=== PATIENT | female | born 1990 | race African-American/Black ===

== ENCOUNTER 2016-04-27 11:21 | Emergency (ER) | payer MEDICAID ==
[2016-04-27 11:34] VITALS: BP 106/68
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
== END 2016-04-27 12:27 | disposition home or self-care (01) ==
LOC: ER 11:21
DX: S20.211A Contusion of right front wall of thorax, initial encounter (principal); Y04.8XXA Assault by other bodily force, initial encounter; R07.81 Pleurodynia; R07.89 Other chest pain; Z88.5 Allergy status to narcotic agent; F17.200 Nicotine dependence, unspecified, uncomplicated
CPT/HCPCS: 99283

== ENCOUNTER 2016-05-01 11:17 | Emergency (ER) | payer MEDICAID ==
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
[2016-05-01 13:51] VITALS: BP 120/60
== END 2016-05-01 13:52 | disposition home or self-care (01) ==
LOC: ER 11:17
DX: S20.20XA Contusion of thorax, unspecified, initial encounter (principal); R07.81 Pleurodynia; Y00.XXXA Assault by blunt object, initial encounter; F17.200 Nicotine dependence, unspecified, uncomplicated
CPT/HCPCS: 99283

== ENCOUNTER 2016-05-28 12:04 | Emergency (ER) | payer MEDICAID ==
[2016-05-28 12:16] VITALS: BP 113/68
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
[2016-05-28] MEDS ORDERED: ACETAMINOPHEN 325 MG TABLET PO ONE (13:08)
--- NOTE | 2016-05-28 14:31 | ER Document Report ---
[id number] FALL BACK PAIN Mode of Arrival: Ambulatory Notes: The patient is a 26 her old female who presents with left shoulder pain and left -sided rib pain after an entertainment center fell on her. She said the pain is worse when she moves her shoulders and she has not taken anything to help. She denies numbness, tingling, neck pain, shortness of breath, open wounds, head injury or LOC. TRAVEL OUTSIDE OF THE [place] IN LAST 30 DAYS: No - Related Data Allergies/Adverse Reactions: codeine [Codeine] Allergy (Verified 05/28/16 13:04) Hives tramadol [Tramadol] Allergy (Verified 05/28/16 13:04) Hives Past Medical History - General Information source: Patient - Social History Smoking Status: Current Some Day Smoker Family History: Reviewed & Not Pertinent Patient has suicidal ideation: No Patient has homicidal ideation: No Renal/ Medical History: Denies: Hx Peritoneal Dialysis Past Surgical History: Reports: Hx Tonsillectomy - Immunizations Immunizations up to date: Yes Hx Diphtheria, Pertussis, Tetanus Vaccination: Yes Review of Systems - Review of Systems Notes: REVIEW OF SYSTEMS: CONSTITUTIONAL: -fevers, -chills EENT: -eye pain, -difficulty swallowing, -nasal congestion CARDIOVASCULAR:-chest pain, -syncope. RESPIRATORY: -cough, -SOB GASTROINTESTINAL: -abdominal pain, - nausea, -vomiting, -diarrhea GENITOURINARY: -dysuria, -hematuria MUSCULOSKELETAL: +left shoulder pain, +left rib pain, -back pain, -neck pain SKIN: -rash or skin lesions. HEMATOLOGIC: -easy bruising or bleeding. LYMPHATIC: -swollen, enlarged glands. NEUROLOGICAL: -altered mental status or loss of consciousness, -headache, - neurologic symptoms PSYCHIATRIC: -anxiety, -depression. ALL OTHER SYSTEMS REVIEWED AND NEGATIVE. Physical Exam - Vital signs Vitals: Temp Pulse Resp BP Pulse Ox 98.1 F 98 16 113/68 99 05/28/16 12:15 05/28/16 12:15 05/28/16 12:15 05/28/16 12:15 05/28/16 12:15 - Notes Notes: PHYSICAL EXAMINATION: GENERAL: Well-appearing, well-nourished and in no acute distress. HEAD: Atraumatic, normocephalic. EYES: Pupils equal round and reactive to light, extraocular movements intact, sclera anicteric, conjunctiva are normal. ENT: nares patent, oropharynx clear without exudates. Moist mucous membranes. NECK: Normal range of motion, supple without lymphadenopathy LUNGS: Breath sounds clear to auscultation bilaterally and equal. No wheezes rales or rhonchi. HEART: Regular rate and rhythm without murmurs ABDOMEN: Soft, nontender, normoactive bowel sounds. No guarding, no rebound. No masses appreciated. EXTREMITIES: Tenderness over left anterior shoulder and left lateral ribs. Normal range of motion, no pitting or edema. No cyanosis. NEUROLOGICAL: Cranial nerves grossly intact. Normal speech, normal gait. Normal sensory, motor, and reflex exams. PSYCH: Normal mood, normal affect. SKIN: Warm, Dry, normal turgor, no rashes or lesions noted. Course - Re-evaluation Re-evalutation: Rib x-ray and shoulder x-rays do not show any evidence of fractures. Will treat contusions with anti-inflammatories and have her follow-up with her primary care physician. She agrees with plan. - Vital Signs Vital signs: Temp Pulse Resp BP Pulse Ox 98.1 F 98 16 113/68 99 05/28/16 12:15 05/28/16 12:15 05/28/16 12:15 05/28/16 12:15 05/28/16 12:15 Discharge - Discharge Clinical Impression: Shoulder contusion Qualifiers: Encounter type: initial encounter Laterality: left Qualified Code(s): S40.012A - Contusion of left shoulder, initial encounter Contusion of rib on left side Qualifiers: Encounter type: initial encounter Qualified Code(s): S20.212A - Contusion of left front wall of thorax, initial encounter Condition: Good Disposition: HOME, SELF-CARE Additional Instructions: Take over the counter Naprosyn twice a day to help with any bruising and apply ice packs. Contusion Your injury has resulted in a contusion -- a crushing of the deep tissues. No injury to important structures was detected during the physician's exam. Contusions vary in the amount of pain they cause, and in the length of time required for healing. Typically, the area will become bruised, and will remain painful to touch for two or three weeks. However, most patients are back to working and playing within a few days. After the initial period of rest and cold-packs, your symptoms (together with the doctor's recommendations) will determine how rapidly you can get back to full activity. Usually this means "do what feels okay, but don't do things that hurt." If re-examination was recommended, it's important to follow up as instructed. Call the doctor or return any time if pain increases, if swelling becomes severe, if you develop numbness or weakness in an injured extremity, or if any other alarming symptoms occur. Referrals: JESUS SOMMERS MD [Primary Care Provider] - Follow up as needed
[2016-05-28] MEDS ORDERED: NAPROXEN 250 MG TABLET PO ONE (15:06)
== END 2016-05-28 15:00 | disposition home or self-care (01) ==
LOC: ER 12:04
DX: S40.012A Contusion of left shoulder, initial encounter (principal); S20.212A Contusion of left front wall of thorax, initial encounter; W20.8XXA Other cause of strike by thrown, projected or falling object, initial encounter; Y93.89 Activity, other specified; F17.200 Nicotine dependence, unspecified, uncomplicated; Z88.5 Allergy status to narcotic agent
CPT/HCPCS: 99283; 71101; 73030; J3490

== ENCOUNTER 2016-07-04 12:25 | Emergency (ER) | payer MEDICAID ==
[2016-07-04 12:35] VITALS: BP 111/67
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
[2016-07-04] MEDS ORDERED: IBUPROFEN 800 MG TABLET PO ONE (15:21)
== END 2016-07-04 15:35 | disposition home or self-care (01) ==
LOC: ER 12:25
DX: M54.5 Low back pain (principal); M25.551 Pain in right hip; Y04.0XXA Assault by unarmed brawl or fight, initial encounter; F17.200 Nicotine dependence, unspecified, uncomplicated; Z79.3 Long term (current) use of hormonal contraceptives
CPT/HCPCS: 72110; 99283

== ENCOUNTER 2016-07-17 13:57 | Emergency (ER) | payer SELFPAY ==
[2016-07-17 14:22] VITALS: BP 131/79
--- NOTE | 2016-07-17 14:59 | ER Document Report ---
HPI - HPI Patient complains to provider of: DENTAL PAIN Onset: Other Onset/Duration: Gradual Quality of pain: Throbbing Severity: Severe Pain Level: 5 Context: Patient states she has been having right upper dental pain for a couple of days , but been on a piece of beef jerky this morning and has been in constant pain since then. Complains of swelling to right side of her face. Patient states she has an appointment with her dentist on August 03 at 11:30 AM. Associated Symptoms: None Exacerbated by: Food Relieved by: Denies Similar symptoms previously: Yes Recently seen / treated by doctor: No - ROS ROS below otherwise negative: Yes Systems Reviewed and Negative: Yes All other systems reviewed and negative - CONSTITUTIONAL Constitutional: DENIES: Fever - EENT EENT: DENIES: Congestion - NEURO Neurology: DENIES: Headache - CARDIOVASCULAR Cardiovascular: DENIES: Chest pain - RESPIRATORY Respiratory: DENIES: Trouble Breathing - GASTROINTESTINAL Gastrointestinal: DENIES: Abdominal Pain - URINARY Urinary: DENIES: Dysuria - REPRODUCTIVE Reproductive: DENIES: : - MUSCULOSKELETAL Musculoskeletal: DENIES: Extremity pain - DERM Skin Color: Normal Skin Problems: None Past Medical History - General Information source: Patient - Social History Smoking Status: Current Every Day Smoker Cigarette use (# per day): Yes Frequency of alcohol use: None Drug Abuse: None Lives with: Family Family History: Reviewed & Not Pertinent Patient has suicidal ideation: No Patient has homicidal ideation: No - Medical History Medical History: Negative Renal/ Medical History: Denies: Hx Peritoneal Dialysis Past Surgical History: Reports: Hx Tonsillectomy - Immunizations Immunizations up to date: Yes Hx Diphtheria, Pertussis, Tetanus Vaccination: Yes Vertical Provider Document - CONSTITUTIONAL Agree With Documented VS: Yes Exam Limitations: No Limitations General Appearance: WD/WN, No Apparent Distress - INFECTION CONTROL TRAVEL OUTSIDE OF THE [place] IN LAST 30 DAYS: No - HEENT HEENT: Atraumatic, Normocephalic Mouth Diagram: 1 - CAVITY, MILD EDEMA AROUND TOOTH - NECK Neck: Normal Inspection, Supple - RESPIRATORY Respiratory: Breath Sounds Normal, No Respiratory Distress O2 Sat by Pulse Oximetry: 98 - CARDIOVASCULAR Cardiovascular: Regular Rate, Regular Rhythm - GI/ABDOMEN Gastrointestinal: Abdomen Soft - MUSCULOSKELETAL/EXTREMETIES Musculoskeletal/Extremeties: MAEW, FROM - NEURO Level of Consciousness: Awake, Alert, Appropriate - DERM Integumentary: Warm, Dry, No Rash Course - Vital Signs Vital signs: Temp Pulse Resp BP Pulse Ox 98.3 F 65 16 131/79 H 98 07/17/16 14:20 07/17/16 14:20 07/17/16 14:20 07/17/16 14:20 07/17/16 14:20 Discharge - Discharge Clinical Impression: Toothache Condition: Good Disposition: HOME, SELF-CARE Instructions: Toothache ([facility]), Clindamycin ([facility]) Additional Instructions: MEDS PRESCRIBED MOTRIN NEEDED FOLLOW UP WITH DENTIST SCHEDULED, CALL TO SEE IF YOU CAN GET EARLIER APPT RETURN NEEDED Prescriptions: Clindamycin HCl 150 mg PO QID #28 capsule Hydrocodone/Acetaminophen [[place] 5-325 mg Tablet] 1 tab PO PRN PRN #15 tablet PRN Reason:
== END 2016-07-17 15:00 | disposition home or self-care (01) ==
LOC: ER 13:57
DX: K08.89 Other specified disorders of teeth and supporting structures (principal); R22.0 Localized swelling, mass and lump, head; F17.210 Nicotine dependence, cigarettes, uncomplicated
CPT/HCPCS: 99282

== ENCOUNTER 2016-07-31 16:23 | Emergency (ER) | payer SELFPAY ==
--- NOTE | 2016-07-31 17:19 | ER Document Report ---
HPI - HPI Patient complains to provider of: TOOTHACHE Onset: Other - INTERMITTENT FOR 3 WEEKS Onset/Duration: Waxing and waning Quality of pain: Throbbing Severity: Severe Pain Level: 5 Context: Patient states that last visit she had an appointment August 03 at 11:30. Today she tells me she has an appointment August 09 at 11:00. Associated Symptoms: None Exacerbated by: Food Relieved by: Denies Similar symptoms previously: Yes Recently seen / treated by doctor: Yes - ROS ROS below otherwise negative: Yes Systems Reviewed and Negative: Yes All other systems reviewed and negative - CONSTITUTIONAL Constitutional: DENIES: Fever - EENT EENT: DENIES: Congestion Notes: RIGHT UPPER TOOTHACHE - NEURO Neurology: DENIES: Headache - CARDIOVASCULAR Cardiovascular: DENIES: Chest pain - RESPIRATORY Respiratory: DENIES: Trouble Breathing - GASTROINTESTINAL Gastrointestinal: DENIES: Abdominal Pain - URINARY Urinary: DENIES: Dysuria - REPRODUCTIVE Reproductive: DENIES: : - MUSCULOSKELETAL Musculoskeletal: DENIES: Extremity pain - DERM Skin Color: Normal Skin Problems: None Past Medical History - General Information source: Patient - Social History Smoking Status: Current Every Day Smoker Frequency of alcohol use: None Drug Abuse: None Lives with: Family Family History: Reviewed & Not Pertinent Patient has suicidal ideation: No Patient has homicidal ideation: No - Medical History Medical History: Negative Past Surgical History: Reports: Hx Tonsillectomy - Immunizations Immunizations up to date: Yes Hx Diphtheria, Pertussis, Tetanus Vaccination: Yes Vertical Provider Document - CONSTITUTIONAL Agree With Documented VS: Yes Exam Limitations: No Limitations General Appearance: WD/WN, Mild Distress - INFECTION CONTROL TRAVEL OUTSIDE OF THE [place] IN LAST 30 DAYS: No - HEENT HEENT: Atraumatic, Normocephalic Mouth Diagram: 1 - DECAY WITH MILD GUM SWELLING Notes: MILD EDEMA TO RIGHT CHEEK. - NECK Neck: Normal Inspection - RESPIRATORY Respiratory: Breath Sounds Normal, No Respiratory Distress O2 Sat by Pulse Oximetry: 99 - CARDIOVASCULAR Cardiovascular: Regular Rate, Regular Rhythm - MUSCULOSKELETAL/EXTREMETIES Musculoskeletal/Extremeties: CLIFFORD GARCIA - NEURO Level of Consciousness: Awake, Alert, Appropriate - DERM Integumentary: Warm, Dry, No Rash Course - Vital Signs Vital signs: Temp Pulse Resp BP Pulse Ox 99.2 F 78 12 123/75 99 07/31/16 17:00 07/31/16 17:00 07/31/16 17:00 07/31/16 17:00 07/31/16 17:00 Discharge - Discharge Clinical Impression: Toothache Condition: Good Disposition: HOME, SELF-CARE Instructions: Toothache ([facility]), Penicillin V K ([facility]) Additional Instructions: MEDS PRESCRIBED MOTRIN FOR PAIN CALL YOUR DENTIST FOR EARLIER APPT. RETURN NEEDED Prescriptions: Hydrocodone/Acetaminophen [[place] 5-325 mg Tablet] 1 tab PO PRN PRN #5 tablet PRN Reason: Ibuprofen 800 mg PO TID PRN #30 tablet PRN Reason: Penicillin V Potassium [Penicillin Vk 250 mg Tablet] 250 mg PO Q6 #40 tablet
[2016-07-31] MEDS ORDERED: HYDROCODONE/ACETAMINOPHEN 5-325 MG TABLET PO ONE (17:34)
[2016-07-31 18:07] VITALS: BP 131/60
== END 2016-07-31 18:08 | disposition home or self-care (01) ==
LOC: ER 16:23
DX: K02.9 Dental caries, unspecified (principal); K08.89 Other specified disorders of teeth and supporting structures; F17.200 Nicotine dependence, unspecified, uncomplicated
CPT/HCPCS: 99282

== ENCOUNTER 2016-08-20 15:36 | Emergency (ER) | payer SELFPAY ==
[2016-08-20] MEDS ORDERED: NORMAL SALINE 1000 ML 1,000 ML IV PRN (16:03)
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
[2016-08-20 16:11] LABS: ABSOLUTE BASOPHILS # (AUTO) 0.1 10^3/uL (0.0-0.2); ABSOLUTE EOSINOPHILS # (AUTO) 0.1 10^3/uL (0.0-0.6); ABSOLUTE LYMPHOCYTES (AUTO) 2.1 10^3/uL (0.5-4.7); ABSOLUTE MONOCYTES (AUTO) 0.5 10^3/uL (0.1-1.4); ABSOLUTE NEUT (AUTO) 3.3 10^3/uL (1.7-8.2); BASOPHILS % (AUTO) 1.5 % (0-2); HEMATOCRIT 46.9 % (36.0-47.0); HEMOGLOBIN 15.6 g/dL (12.0-15.5); HGB HCT DIFFERENCE -0.1; MEAN CORPUSCULAR HEMOGLOBIN 30.3 pg (27.0-33.4); MEAN CORPUSCULAR HGB CONC 33.2 g/dL (32.0-36.0); MEAN CORPUSCULAR VOLUME 91 fl (80-97); MONOCYTES % (AUTO) 7.7 % (3-13); RED BLOOD COUNT 5.14 10^6/uL (3.72-5.28); RED CELL DISTRIBUTION WIDTH 14.2 % (11.5-14.0); SEGMENTED NEUTROPHILS % (AUTO) 54.8 % (42-78); WHITE BLOOD COUNT 6.1 10^3/uL (4.0-10.5)
[2016-08-20 16:18] LABS: PROTHROMBIN TIME 13.2 SEC (11.4-15.4)
[2016-08-20 16:30] LABS: ALANINE AMINOTRANSFERASE 28 U/L (9-52); ALBUMIN 4.5 g/dL (3.5-5.0); ALKALINE PHOSPHATASE 58 U/L (38-126); ANION GAP 12 (5-19); ASPARTATE AMINO TRANSFERASE 20 U/L (14-36); BILIRUBIN,DIRECT 0.3 mg/dL (0.0-0.4); BILIRUBIN,TOTAL 0.8 mg/dL (0.2-1.3); BLOOD UREA NITROGEN 9 mg/dL (7-20); CARBON DIOXIDE 26 mmol/L (22-30); CHLORIDE 102 mmol/L (98-107); GLUCOSE 99 mg/dL (75-110); POTASSIUM 4.7 mmol/L (3.6-5.0); SODIUM 140.2 mmol/L (137-145); TOTAL PROTEIN 7.7 g/dL (6.3-8.2)
[2016-08-20] MEDS ORDERED: ALPRAZOLAM 0.5 MG TABLET PO ONE (16:39)
[2016-08-20] MEDS ORDERED: OXYCODONE-ACETAMINOPHEN 5-325 MG TABLET PO ONE (16:41)
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
[2016-08-20 18:49] VITALS: BP 114/83
== END 2016-08-20 18:49 | disposition home or self-care (01) ==
LOC: ER 15:36
DX: S06.0X9A Concussion with loss of consciousness of unspecified duration, initial encounter (principal); S16.1XXA Strain of muscle, fascia and tendon at neck level, initial encounter; S29.019A Strain of muscle and tendon of unspecified wall of thorax, initial encounter; M54.5 Low back pain; V86.59XA Driver of other special all-terrain or other off-road motor vehicle injured in nontraffic accident, initial encounter; Z88.5 Allergy status to narcotic agent; Z88.8 Allergy status to other drugs, medicaments and biological substances
CPT/HCPCS: 99284; 96360; 36415; 84702; 85025; 85610; 80053; 73090; 73060; 70450; 71260; 72125; 74177; J7030

== ENCOUNTER 2016-09-17 13:28 | Emergency (ER) | payer SELFPAY ==
[2016-09-17 13:33] VITALS: BP 114/69
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
[2016-09-17 15:10] LABS: APPEARANCE,URINE SLIGHTLY-CLOUDY; BILIRUBIN,URINE NEGATIVE (NEGATIVE); GLUCOSE, URINE NEGATIVE (NEGATIVE); KETONES,URINE NEGATIVE (NEGATIVE); LEUKOCYTE ESTERASE,URINE NEGATIVE (NEGATIVE); NITRITE,URINE NEGATIVE (NEGATIVE); PROTEIN,URINE NEGATIVE (NEGATIVE); URINE SPECIFIC GRAVITY 1.014; UROBILINOGEN,URINE NEGATIVE mg/dL (<2.0)
[2016-09-17] MEDS ORDERED: OXYCODONE-ACETAMINOPHEN 5-325 MG TABLET PO ONE (15:33)
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
== END 2016-09-17 16:19 | disposition left against medical advice (07) ==
LOC: EEVIPCON 13:28 → ER 13:28
DX: R51 Headache (principal); M54.5 Low back pain; Y04.2XXA Assault by strike against or bumped into by another person, initial encounter; F17.210 Nicotine dependence, cigarettes, uncomplicated; K08.89 Other specified disorders of teeth and supporting structures
CPT/HCPCS: 70150; 81001; 81025; 99284

== ENCOUNTER 2016-10-03 13:56 | Emergency (ER) | payer OTHER ==
[2016-10-03 14:03] VITALS: BP 117/69
[2016-10-03] MEDS ORDERED: OXYCODONE-ACETAMINOPHEN 5-325 MG TABLET PO ONE (15:00)
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
== END 2016-10-03 17:44 | disposition home or self-care (01) ==
LOC: EEVIPCON 13:56 → ER 13:56
DX: S20.211A Contusion of right front wall of thorax, initial encounter (principal); S80.11XA Contusion of right lower leg, initial encounter; R52 Pain, unspecified; V28.2XXA Unspecified motorcycle rider injured in noncollision transport accident in nontraffic accident, initial encounter
CPT/HCPCS: 70450; 71250; 72125; 74176; 99284

== ENCOUNTER 2016-10-09 14:28 | Emergency (ER) | payer OTHER ==
[2016-10-09 14:45] VITALS: BP 113/62
[2016-10-09] MEDS ORDERED: CLINDAMYCIN HCL 150 MG CAPSULE PO ONE (15:19)
[2016-10-09] MEDS ORDERED: HYDROCODONE/ACETAMINOPHEN 5-325 MG 6 TAB/DSPK PO PRN (15:19)
--- NOTE | 2016-10-09 15:20 | ER Document Report ---
HPI - HPI Patient complains to provider of: dental pain Onset: Other - chronic Onset/Duration: Intermittent Quality of pain: Sharp Pain Level: 4 Associated Symptoms: Other - dental pain Exacerbated by: Food Relieved by: Denies Similar symptoms previously: Yes Recently seen / treated by doctor: Yes - ROS ROS below otherwise negative: Yes - CONSTITUTIONAL Constitutional: DENIES: Fever, Chills - EENT EENT: DENIES: Sore Throat, Ear Pain, Nasal Drainage-Clear, Nasal Drainage- Purulent, Congestion, Eye problems Notes: Complains of dental pain and swelling to the right upper gums been chronic and she has been getting pain medications frequently. Went to the dentist and had a cleaning done but she has obvious gingivitis and cavities. - NEURO Neurology: DENIES: Headache, Weakness, Vision blurred, Dizzinesss / Vertigo - CARDIOVASCULAR Cardiovascular: DENIES: Chest pain - RESPIRATORY Respiratory: DENIES: Trouble Breathing, Coughing - GASTROINTESTINAL Gastrointestinal: DENIES: Abdominal Pain, Nausea, Patient vomiting, Diarrhea, Constipation, Black / Bloody Stools - URINARY Urinary: DENIES: Dysuria, Urgency, Frequency - REPRODUCTIVE Reproductive: DENIES: :, Postmenopausal, Abnormal bleeding / discharge - MUSCULOSKELETAL Musculoskeletal: DENIES: Extremity pain, Back Pain, Neck Pain, Swelling - DERM Skin Color: Normal Skin Problems: None Past Medical History - General Information source: Patient - Social History Smoking Status: Current Every Day Smoker Cigarette use (# per day): Yes - 5 cigarettes a day Chew tobacco use (# tins/day): No Smoking Education Provided: Yes - Less than 2 minutes Frequency of alcohol use: None Drug Abuse: None Occupation: None Lives with: Spouse/Significant other Family History: Reviewed & Not Pertinent Patient has suicidal ideation: No Patient has homicidal ideation: No - Past Medical History Cardiac Medical History: Reports: None Pulmonary Medical History: Reports: None EENT Medical History: Reports: None Neurological Medical History: Reports: None Endocrine Medical History: Reports: None Renal/ Medical History: Reports: None Malignancy Medical History: Reports: None GI Medical History: Reports: None Musculoskeltal Medical History: Reports None Skin Medical History: Reports None Psychiatric Medical History: Reports: None Traumatic Medical History: Reports: None Infectious Medical History: Reports: None Past Surgical History: Reports: Hx Tonsillectomy - Immunizations Immunizations up to date: Yes Hx Diphtheria, Pertussis, Tetanus Vaccination: Yes Vertical Provider Document - CONSTITUTIONAL Agree With Documented VS: Yes Exam Limitations: No Limitations General Appearance: WD/WN, No Apparent Distress - INFECTION CONTROL TRAVEL OUTSIDE OF THE [place] IN LAST 30 DAYS: No - HEENT HEENT: Atraumatic, Normal ENT Exam, Normocephalic, PERRLA Mouth Diagram: 1 - Obvious gingivitis and several small cavities no swelling to the jaw no swelling to the face. - NECK Neck: Normal Inspection, Supple - RESPIRATORY Respiratory: Breath Sounds Normal, No Respiratory Distress, Chest Non-Tender O2 Sat by Pulse Oximetry: 100 - CARDIOVASCULAR Cardiovascular: Regular Rate, Regular Rhythm - GI/ABDOMEN Gastrointestinal: Abdomen Soft, Abdomen Non-Tender, No Organomegaly, Normal Bowel Sounds - BACK Back: Normal Inspection - MUSCULOSKELETAL/EXTREMETIES Musculoskeletal/Extremeties: MAEW, FROM, Non-Tender - NEURO Level of Consciousness: Awake, Alert, Appropriate Motor/Sensory: No Motor Deficit, No Sensory Deficit - DERM Integumentary: Warm, Dry, No Rash Course - Vital Signs Vital signs: Temp Pulse Resp BP Pulse Ox 98.2 F 87 16 113/62 100 10/09/16 14:41 10/09/16 14:41 10/09/16 14:41 10/09/16 14:41 10/09/16 14:41 Discharge - Discharge Clinical Impression: Pain due to dental caries Condition: Stable Disposition: HOME, SELF-CARE Additional Instructions: TOOTHACHE: Your pain is due to dental decay. The tooth must be repaired in order for you to feel better. You will, therefore, be referred to a dentist. We do not have dentists on the staff at [facility]. Severe swelling or drainage around a tooth usually means a dental abscess. This also requires evaluation and treatment by the dentist, but antibiotics may be prescribed while awaiting dental treatment. You should be rechecked immediately if you develop major swelling of the face, increasing pain, a lump in the jaw or gums, headache, difficulty swallowing, or fever. ORAL NARCOTIC MEDICATION: You have been given a dispense pack of [place] for pain control. This medication is a narcotic. It's best taken with food, as nausea can result if taken on an empty stomach. Don't operate machinery or drive within six hours of taking this medication. Do not combine this medicine with alcohol, or with any medication which can cause sedation (such as cold tablets or sleeping pills) unless you get permission from the physician. Narcotics tend to cause constipation. If possible, drink plenty of fluids and eat a diet high in fiber and fruits. Please be aware that prescription narcotics also have the potential for abuse. People become addicted to these medications because of the general sense of wellbeing that they induce. This feeling along with a significant reduction in tension, anxiety, and aggression provides a stimulating seductive quality to these drugs. Once your pain is under control, we encourage you to discard your unused narcotics. CLINDAMYCIN: You have been given a prescription for the antibiotic clindamycin. It is often prescribed for infections in the mouth, such as dental infections or abscesses, and for skin infections due to MRSA. It's important that you take all the medication, unless instructed otherwise by your physician. Failure to complete the entire course can result in relapse of your condition. Common side effects of antibiotics include nausea, intestinal cramping, or diarrhea. Women may develop vaginal yeast infections, and babies can get yeast (thrush) in the mouth following the use of antibiotics. Contact your physician if you develop significant side effects from this medication. Allergy to this antibiotic can result in hives, wheezing, faintness, or itching. If symptoms of allergy occur, stop the medication and call the doctor. FOLLOW-UP CARE: You have been referred for follow-up care to the dentists listed below. Call the dentists office for an appointment as you were instructed or within the next two days. If you experience worsening or a significant change in your symptoms, notify the physician immediately or return to the Emergency Department at any time for re-evaluation. [facility] [address] [place], [place] Saturday mornings, by appointment [facility] [address] [place] [address] [facility] [address] [facility] [address] [facility] [address] [email or web address] [address] [place] [address] Saturday- 8:00am to 5:00 pm Will see patients from other [facility]. Charges based on income and family size and accepts Medicare, Medicaid, and Insurances Will pull molars [facility] [phone] Hours of Operation 8:00 am - 4:30 pm weekdays The following dental offices accept Medicaid: [facility] Dr. Anderson Dr. Dorantes Dr. Frias Dr. Ornelas Vic Stein Lutsavage, and [facility] oral surgery Dr. Rai ([place]) Dr. Sinclair ([place]) [facility] Drs. Velarde and Gaston ([place]) Dr. Valle ([place]) [facility] Dr. Gil ([place]) Drs. Tay and ([place]) Medicaid Care Line Prescriptions: Clindamycin HCl [Cleocin 300 mg Capsule] 600 mg PO Q6 #40 cap Forms: Smoking Cessation Education Referrals: [facility] [Provider Group] - Follow up as needed
== END 2016-10-09 15:25 | disposition home or self-care (01) ==
LOC: ER 14:28
DX: K02.9 Dental caries, unspecified (principal); F17.210 Nicotine dependence, cigarettes, uncomplicated
CPT/HCPCS: 99282

== ENCOUNTER 2016-10-25 17:38 | Emergency (ER) | payer SELFPAY ==
[2016-10-25] MEDS ORDERED: PROMETHAZINE HCL 25 MG TABLET PO ONE (17:58)
[2016-10-25] MEDS ORDERED: OXYCODONE-ACETAMINOPHEN 5-325 MG TABLET PO ONE (17:58)
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
[2016-10-25 18:53] VITALS: BP 130/72
== END 2016-10-25 18:54 | disposition home or self-care (01) ==
LOC: ER 17:38
DX: S00.531A Contusion of lip, initial encounter (principal); S00.432A Contusion of left ear, initial encounter; S40.022A Contusion of left upper arm, initial encounter; S70.12XA Contusion of left thigh, initial encounter; S00.33XA Contusion of nose, initial encounter; Y04.0XXA Assault by unarmed brawl or fight, initial encounter; Y92.59 Other trade areas as the place of occurrence of the external cause
CPT/HCPCS: 70450; 99285

== ENCOUNTER 2016-11-13 13:36 | Emergency (ER) | payer SELFPAY ==
[2016-11-13] MEDS ORDERED: IBUPROFEN 800 MG TABLET PO ONE (14:24)
[2016-11-13] MEDS ORDERED: LIDOCAINE 5% (700 MG) TRANSDERMAL ADH..PATCH TP ONE ×2 (14:24→15:00)
--- NOTE | 2016-11-13 14:26 | ER Document Report ---
HPI - HPI Patient complains to provider of: cough Onset: Other - 3 days Onset/Duration: Gradual Quality of pain: Achy, Sharp Pain Level: 3 Context: Patient presents with a 3 day history of cough with chest pain with deep inspiration and coughing. Patient states pain increases with movement of her torso. Patient reports fever yesterday of 101. Patient denies any vomiting, diarrhea, or urinary symptoms. No previous history of DVT or PE. Patient's child is here with fever symptoms as well. Pt denies any dyspnea Associated Symptoms: Body/muscle aches, Chest pain, Nonproductive cough, Fever. denies: Chills, Earache, Vomiting, Shortness of breath, Sore throat Exacerbated by: Coughing Relieved by: Denies Similar symptoms previously: No Recently seen / treated by doctor: No - ROS ROS below otherwise negative: Yes Systems Reviewed and Negative: Yes All other systems reviewed and negative - CONSTITUTIONAL Constitutional: DENIES: Fever - EENT EENT: DENIES: Sore Throat, Congestion - CARDIOVASCULAR Cardiovascular: REPORTS: Chest pain - RESPIRATORY Respiratory: REPORTS: Coughing. DENIES: Trouble Breathing - GASTROINTESTINAL Gastrointestinal: DENIES: Abdominal Pain, Nausea, Patient vomiting - REPRODUCTIVE Reproductive: DENIES: : - MUSCULOSKELETAL Musculoskeletal: DENIES: Extremity pain, Back Pain, Neck Pain - DERM Skin Color: Normal Skin Problems: None Past Medical History - General Information source: Patient - Social History Smoking Status: Current Every Day Smoker Frequency of alcohol use: None Drug Abuse: None Occupation: none Lives with: Family Family History: None Patient has suicidal ideation: No Patient has homicidal ideation: No - Medical History Medical History: Negative Renal/ Medical History: Denies: Hx Peritoneal Dialysis Past Surgical History: Reports: Hx Tonsillectomy - Immunizations Immunizations up to date: Yes Hx Diphtheria, Pertussis, Tetanus Vaccination: Yes Vertical Provider Document - CONSTITUTIONAL Agree With Documented VS: Yes Exam Limitations: No Limitations General Appearance: WD/WN, No Apparent Distress - INFECTION CONTROL TRAVEL OUTSIDE OF THE [place] IN LAST 30 DAYS: No - HEENT HEENT: Atraumatic, Normal ENT Exam, Normocephalic - NECK Neck: Normal Inspection, Supple. negative: Lymphadenopathy-Left, Lymphadenopathy-Right - RESPIRATORY Respiratory: Breath Sounds Normal, No Respiratory Distress. negative: Chest Non -Tender, Rales, Rhonchi, Wheezing Notes: Patient with left lateral rib tenderness with palpation, deep inspiration or movement of torso. - CARDIOVASCULAR Cardiovascular: Regular Rate, Regular Rhythm, No Murmur - GI/ABDOMEN Gastrointestinal: Abdomen Soft, Abdomen Non-Tender, No Organomegaly - BACK Back: Normal Inspection. negative: CVA Tenderness-Right, CVA Tenderness-Left - MUSCULOSKELETAL/EXTREMETIES Musculoskeletal/Extremeties: CLIFFORD GARCIA - NEURO Level of Consciousness: Awake, Alert, Appropriate Motor/Sensory: No Motor Deficit - DERM Integumentary: Warm, Dry, No Rash Course - Re-evaluation Re-evalutation: 11/13/16 15:22 Patient has been repeatedly requesting pain medication. Patient offered Tylenol , patient initially refused stating that she needs something stronger to take care of her pain. Discussed with patient concerned that patient had multiple narcotic prescriptions over the past several months from various providers. Patient asked by this provider if there was any concerns about substance abuse or addiction. Patient became hostile after this inquiry. Review of controlled substance database demonstrates that patient had multiple narcotic prescriptions over the past several months from multiple providers. Consulted with Dr. Bowling patient presentation and exam findings. EKG reviewed as well as chest x-ray. No additional diagnostic testing advised at this time. The patient has atypical chest pain as the patient's chest pain is not suggestive of pulmonary embolus, cardiac ischemia, aortic dissection, or other serious etiology. Given the extremely low risk of these diagnoses for the test in evaluation for these possibilities does not appear to be indicated at this time. Patient has been instructed to return if the symptoms worsen or change in any way. 11/13/16 16:19 Nurse states that at discharge patient was upset regarding her lack of narcotic pain medications and refused to take any of her discharge paperwork or her child 's discharge paperwork as her child was a patient as well in the ER. - Diagnostic Test Radiology reviewed: Reports reviewed Discharge - Discharge Clinical Impression: Chest wall pain Upper respiratory infection Qualifiers: URI type: unspecified URI Qualified Code(s): J06.9 - Acute upper respiratory infection, unspecified Condition: Stable Disposition: HOME, SELF-CARE Instructions: Chest Wall Pain ([facility]), Acetaminophen, Upper Respiratory Illness ( [facility]) Additional Instructions: Return immediately for any new or worsening symptoms Followup with your primary care provider, call tomorrow to make a followup appointment Use topical lidocaine patches [id number] to help with your pain symptoms Take Tylenol or Motrin [id number] as directed with your pain symptoms Prescriptions: Benzonatate [Tessalon Perle 100 mg Capsule] 100 mg PO Q8HP PRN #20 cap PRN Reason: Referrals: [facility] [place] [Provider Group] - Follow up as needed
[2016-11-13] MEDS ORDERED: ACETAMINOPHEN 325 MG TABLET PO ONE (14:45)
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
--- NOTE | 2016-11-13 18:21 | EKG REPORT ---
SEVERITY:- BORDERLINE ECG - SINUS RHYTHM BORDERLINE T WAVE ABNORMALITIES : Confirmed by: Byron Vivas MD 13-Nov-2016 18:20:49
== END 2016-11-13 16:10 | disposition home or self-care (01) ==
LOC: ER 13:36
DX: J06.9 Acute upper respiratory infection, unspecified (principal); R07.89 Other chest pain; R07.1 Chest pain on breathing; R05 Cough; F17.200 Nicotine dependence, unspecified, uncomplicated
CPT/HCPCS: 71020; 93005; 93010; 99283

== ENCOUNTER 2016-11-21 15:57 | Emergency (ER) | payer SELFPAY ==
[2016-11-21 16:21] VITALS: BP 129/72
--- NOTE | 2016-11-21 16:45 | ER Document Report ---
HPI - HPI Patient complains to provider of: dental pain Pain Level: 4 Context: 26 yo female c/o pain to left upper tooth. tooth cracked last night while eating [place] at the [employer]. Pt unable to see dentist for 2 weeks Associated Symptoms: None Exacerbated by: Food, Other - cold air Relieved by: Denies Similar symptoms previously: Yes Recently seen / treated by doctor: Yes - dental last month - ROS Systems Reviewed and Negative: Yes All other systems reviewed and negative - REPRODUCTIVE LMP: [id number] Reproductive: DENIES: : - DERM Skin Color: Normal Past Medical History - General Information source: Patient - Social History Smoking Status: Current Every Day Smoker Frequency of alcohol use: None Drug Abuse: None Lives with: Family Family History: None Patient has suicidal ideation: No Patient has homicidal ideation: No - Medical History Medical History: Negative Renal/ Medical History: Denies: Hx Peritoneal Dialysis Past Surgical History: Reports: Hx Tonsillectomy - Immunizations Immunizations up to date: Yes Hx Diphtheria, Pertussis, Tetanus Vaccination: Yes Vertical Provider Document - CONSTITUTIONAL Agree With Documented VS: Yes Exam Limitations: No Limitations General Appearance: WD/WN, No Apparent Distress - INFECTION CONTROL TRAVEL OUTSIDE OF THE [place] IN LAST 30 DAYS: No - HEENT HEENT: Atraumatic, PERRLA Mouth Diagram: 1 - fractured tooth, no gingival swelling - NECK Neck: Normal Inspection, Supple - RESPIRATORY Respiratory: Breath Sounds Normal, No Respiratory Distress O2 Sat by Pulse Oximetry: 100 - CARDIOVASCULAR Cardiovascular: Regular Rate, Regular Rhythm - NEURO Level of Consciousness: Awake, Alert, Appropriate - DERM Integumentary: Warm, Dry Course - Vital Signs Vital signs: Temp Pulse Resp BP Pulse Ox 98.1 F 71 18 129/72 H 100 11/21/16 16:19 11/21/16 16:19 11/21/16 16:19 11/21/16 16:19 11/21/16 16:19 Discharge - Discharge Clinical Impression: Toothache Condition: Stable Disposition: HOME, SELF-CARE Instructions: [facility], Clindamycin ([facility]), Penicillin V K ([facility]) , Toothache ([facility]) Additional Instructions: Recommend temporary filling for fractured tooth Take antibiotic as prescribed Use tessalon perles and Motrin as needed for dental pain Follow up with dental for further treatment Prescriptions: Benzonatate [Tessalon Perles 100 mg Capsule] 100 mg TOP Q4 #20 capsule Ibuprofen [Motrin 800 Mg Tablet] 800 mg PO Q6H #20 tablet Penicillin V Potassium 500 mg PO BID #20 tablet
== END 2016-11-21 16:52 | disposition home or self-care (01) ==
LOC: ER 15:57
DX: K08.89 Other specified disorders of teeth and supporting structures (principal); F17.200 Nicotine dependence, unspecified, uncomplicated
CPT/HCPCS: 99282

== ENCOUNTER 2016-11-29 15:21 | Emergency (ER) | payer SELFPAY ==
[2016-11-29 15:33] VITALS: BP 114/98
--- NOTE | 2016-11-29 17:07 | ER Document Report ---
HPI - HPI Pain Level: 5 Notes: Patient is a 26-year-old female who presents the ED complaining of left lower gum swelling 1-2 days. Patient states that she has had pain in that area as well. Patient states that she is scheduled to see a dentist in about 3 weeks. She has been using stef-htj-glhgdry meds with minimal relief. Patient states that her appetite is decreased but she is able to swallow fluids and food without any difficulties. Patient requesting narcotics. Pain does not radiate otherwise. Denies any headache, fever,URI, sore throat, chest pain, palpitations, syncope, cough, shortness of breath, wheeze, dyspnea, abdominal pain, nausea/vomiting/diarrhea, or rash. - ROS Notes: REVIEW OF SYSTEMS: CONSTITUTIONAL : Denies fever, chills, or sweats. Denies recent illness. EENT: see hpi. no eye complaints. CARDIOVASCULAR: Denies chest pain. Denies palpitations or racing or irregular heart beat. Denies ankle edema. RESPIRATORY: Denies cough, cold, or chest congestion. Denies shortness of breath, difficulty breathing, or wheezing. GASTROINTESTINAL: Denies abdominal pain or distention. Denies nausea, vomiting , or diarrhea. Denies blood in vomitus, stools, or per rectum. Denies black, tarry stools. Denies constipation. GENITOURINARY: Denies difficulty urinating, painful urination, burning, frequency, blood in urine, or discharge. MUSCULOSKELETAL: Denies back or neck pain or stiffness. Denies joint pain or swelling. SKIN: Denies rash, lesions or sores. NEUROLOGICAL: Denies confusion or altered mental status. Denies passing out or loss of consciousness. Denies dizziness or lightheadedness. Denies headache. Denies weakness or paralysis or loss of use of either side. Denies problems with gait or speech. Denies sensory loss, numbness, or tingling. ALL OTHER SYSTEMS REVIEWED AND NEGATIVE. Dictation was performed using [employer] voice recognition software - REPRODUCTIVE Reproductive: DENIES: : - DERM Skin Color: Normal Past Medical History - Social History Smoking Status: Unknown if Ever Smoked Family History: None Renal/ Medical History: Denies: Hx Peritoneal Dialysis Past Surgical History: Reports: Hx Tonsillectomy - Immunizations Immunizations up to date: Yes Hx Diphtheria, Pertussis, Tetanus Vaccination: Yes Vertical Provider Document - CONSTITUTIONAL Agree With Documented VS: Yes Notes: PHYSICAL EXAMINATION: GENERAL: Well-appearing, well-nourished and in no acute distress. HEAD: Atraumatic, normocephalic. EYES: Pupils equal round and reactive to light, extraocular movements intact, sclera anicteric, conjunctiva are normal. ENT: EAC clear b/l. TM's intact b/l without erythema, fluid, or perforation. Nares patent and without discharge. oropharynx clear without exudates. No tonsilar hypertrophy or erythema. Moist mucous membranes. No sinus tenderness. Uvula midline. No palatine shift. No tongue protrusion. Mouth: + swelling to the #18 gum without obvious abscess or discharge. + tenderness to palp. NECK: Normal range of motion, supple without lymphadenopathy. No rigidity/ meningismus. LUNGS: Breath sounds clear to auscultation bilaterally and equal. No wheezes rales or rhonchi. HEART: Regular rate and rhythm without murmurs, rubs, gallops. ABDOMEN: Soft, nontender, nondistended abdomen. No guarding, no rebound. No masses appreciated. Normal bowel sounds present. No CVA tenderness bilaterally. Extremities: No cyanosis, clubbing, or edema b/l. Peripheral pulses 2+. Capillary refill less than 3 seconds. NEUROLOGICAL: Cranial nerves grossly intact. Normal speech, normal gait. Normal sensory, motor exams PSYCH: Normal mood, normal affect. SKIN: Warm, Dry, normal turgor, no rashes or lesions noted. - INFECTION CONTROL TRAVEL OUTSIDE OF THE [place] IN LAST 30 DAYS: No - RESPIRATORY O2 Sat by Pulse Oximetry: 97 Course - Re-evaluation Re-evalutation: 11/29/16 17:06 Patient is an afebrile, well-hydrated, 26-year-old female who presents the ED with left lower dental pain and swelling without obvious abscess. Vitals are stable. PE otherwise unremarkable. Patient states that she had been taking penicillin, but we will switch her to clindamycin 4 times a day for 10 days along with viscous lidocaine. Patient is to keep her appointment with her dentist in 3 weeks, sooner if able. Low suspicion for any peritonsillar/ pharyngeal abscess, respiratory compromise, sepsis, meningitis, Parker's. Patient is aware that condition can change from initial presentation she needs to monitor symptoms closely and seek medical attention if any acute changes. Recheck with your PCM this week. Return to the ED with any worsening/ concerning symptoms otherwise as reviewed discharge. Patient is in agreement. - Vital Signs Vital signs: Temp Pulse Resp BP Pulse Ox 98.3 F 84 16 114/98 H 97 11/29/16 15:30 11/29/16 15:30 11/29/16 15:30 11/29/16 15:30 11/29/16 15:30 Discharge - Discharge Clinical Impression: Toothache, Gingival swelling Condition: Stable Disposition: HOME, SELF-CARE Instructions: Toothache ([facility]), Clindamycin ([facility]) Additional Instructions: Hastings and floss twice daily Maintain fluid intake Take antibiotics as directed Mouthwash, salt water gargles, peroxide rinse as needed Tylenol/ibuprofen as needed Recheck with PCM this week Keep appointment with your dentist for further evaluation Return to the ED with any worsening symptoms and/or development of fever, headache, facial swelling, swelling of lips/tongue/throat, trouble swallowing, drooling, hoarseness, neck pain/stiffness, chest pain, palpitations, syncope, shortness of breath, trouble breathing, abdominal pain, n/v/d, numbness/tingling , or other worsening symptoms that are concerning to you. Prescriptions: Clindamycin HCl [Cleocin 300 mg Capsule] 300 mg PO QID #30 capsule Forms: Elevated Blood Pressure Referrals: [facility] [Provider Group] - Follow up as needed
[2016-11-29] MEDS ORDERED: LIDOCAINE 2% VISCOUS SOLN 20 ML UDCUP PO ONE (17:09)
== END 2016-11-29 17:29 | disposition home or self-care (01) ==
LOC: ER 15:21
DX: K08.89 Other specified disorders of teeth and supporting structures (principal); R63.0 Anorexia
CPT/HCPCS: 99282; J3490

== ENCOUNTER 2016-12-04 00:12 | Emergency (ER) | payer SELFPAY ==
[2016-12-04 00:28] VITALS: BP 112/73
[2016-12-04] MEDS ORDERED: ACETAMINOPHEN 325 MG TABLET PO ONE (00:55)
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
== END 2016-12-04 02:15 | disposition home or self-care (01) ==
LOC: EEVIPCON 00:12 → ER 00:12
DX: S20.212A Contusion of left front wall of thorax, initial encounter (principal); Y04.2XXA Assault by strike against or bumped into by another person, initial encounter; Y92.481 Parking lot as the place of occurrence of the external cause; M25.552 Pain in left hip; R07.81 Pleurodynia; R10.9 Unspecified abdominal pain; Z88.5 Allergy status to narcotic agent; Z88.8 Allergy status to other drugs, medicaments and biological substances
CPT/HCPCS: 99284

== ENCOUNTER 2016-12-16 11:48 | Emergency (ER) | payer OTHER ==
[2016-12-16 11:57] VITALS: BP 124/73
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
[2016-12-16] MEDS ORDERED: METHOCARBAMOL 500 MG TABLET PO ONE (12:43)
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
== END 2016-12-16 13:19 | disposition home or self-care (01) ==
LOC: ER 11:48
DX: S16.1XXA Strain of muscle, fascia and tendon at neck level, initial encounter (principal); S20.212A Contusion of left front wall of thorax, initial encounter; V43.52XA Car driver injured in collision with other type car in traffic accident, initial encounter; F17.200 Nicotine dependence, unspecified, uncomplicated; Z88.5 Allergy status to narcotic agent; Z88.8 Allergy status to other drugs, medicaments and biological substances
CPT/HCPCS: 72050; 99284

== ENCOUNTER 2016-12-22 15:28 | Emergency (ER) | payer SELFPAY ==
[2016-12-22 15:40] VITALS: BP 119/67
[2016-12-22] MEDS ORDERED: IBUPROFEN 800 MG TABLET PO ONE (16:04)
--- NOTE | 2016-12-22 16:04 | ER Document Report ---
ED Oral Problem - General Chief Complaint: Mouth Problem Stated Complaint: MOUTH PAIN Time Seen by Provider: 12/22/16 15:48 Mode of Arrival: Ambulatory Information source: Patient Notes: Patient is a 26-year-old female who presents to the ER today for right dental pain to the upper back molars. Patient has a dentist. She admits to some swelling on the right side that started 2 days ago. She denies any drainage, fever, chills. She states that she had penicillin after a dental procedure over a month ago. She denies any injury. She states it is difficult to open her mouth due to the pain. TRAVEL OUTSIDE OF THE [place] IN LAST 30 DAYS: No - Related Data Allergies/Adverse Reactions: codeine [Codeine] Allergy (Verified 12/22/16 15:36) Hives naproxen Allergy (Verified 12/22/16 15:36) tramadol [Tramadol] Allergy (Verified 12/22/16 15:36) Hives Past Medical History - General Information source: Patient - Social History Smoking Status: Current Every Day Smoker Family History: Reviewed & Not Pertinent Renal/ Medical History: Denies: Hx Peritoneal Dialysis Past Surgical History: Reports: Hx Tonsillectomy - Immunizations Immunizations up to date: Yes Hx Diphtheria, Pertussis, Tetanus Vaccination: Yes Review of Systems - Review of Systems Constitutional: No symptoms reported EENT: See HPI Cardiovascular: No symptoms reported Respiratory: No symptoms reported Gastrointestinal: No symptoms reported Genitourinary: No symptoms reported Female Genitourinary: No symptoms reported Musculoskeletal: No symptoms reported Skin: No symptoms reported Hematologic/Lymphatic: No symptoms reported Neurological/Psychological: No symptoms reported Physical Exam - Vital signs Vitals: Temp Pulse Resp BP Pulse Ox 98.4 F 98 18 119/67 98 12/22/16 15:37 12/22/16 15:37 12/22/16 15:37 12/22/16 15:37 12/22/16 15:37 - Notes Notes: PHYSICAL EXAMINATION: GENERAL: Appears uncomfortable, holding right side of face, but in no acute distress. HEAD: Atraumatic, normocephalic. EYES: Pupils equal round and reactive to light, extraocular movements intact, sclera anicteric, conjunctiva are normal. ENT: ear canals without erythema or foreign body, TMs pearly robert with good bony landmarks, nares patent, oropharynx clear without exudates. Moist mucous membranes. Poor dentition, tender over entire right upper and lower jawline and buccal space, but opens mouth entirely without any issue and no fluctuance or induration that I can appreciate NECK: Normal range of motion, supple without lymphadenopathy LUNGS: CTAB and equal. No wheezes rales or rhonchi. HEART: Regular rate and rhythm without murmurs EXTREMITIES: Normal range of motion, no pitting edema. No cyanosis. NEUROLOGICAL: Cranial nerves grossly intact. Normal sensory/motor exams. PSYCH: Normal mood, normal affect. SKIN: Warm, Dry, normal turgor, no rashes or lesions noted Course - Re-evaluation Re-evalutation: 12/22/16 16:30 Patient has no obvious abscess on exam, can open her mouth very well without any issues. I will start her on amoxicillin and did offer to do a dental block which she refused. I will give her Motrin for the pain. - Vital Signs Vital signs: Temp Pulse Resp BP Pulse Ox 98.4 F 98 18 119/67 98 12/22/16 15:37 12/22/16 15:37 12/22/16 15:37 12/22/16 15:37 12/22/16 15:37 Discharge - Discharge Clinical Impression: Toothache Condition: Stable Disposition: HOME, SELF-CARE Instructions: [facility], Toothache ([facility]) Additional Instructions: The [facility] can now do dental work. Please see your dentist or called the [facility] to set up an appointment. Return immediately for any new or worsening symptoms. Follow up with primary care provider, call tomorrow to make followup appointment. Prescriptions: Amoxicillin 500 mg PO TID #30 capsule Ibuprofen [Motrin 800 mg Tablet] 800 mg PO Q8H PRN #30 tab PRN Reason:
== END 2016-12-22 16:31 | disposition home or self-care (01) ==
LOC: ER 15:28
DX: K08.9 Disorder of teeth and supporting structures, unspecified (principal); F17.200 Nicotine dependence, unspecified, uncomplicated; Z88.6 Allergy status to analgesic agent
CPT/HCPCS: 99282

== ENCOUNTER 2017-01-03 14:26 | Emergency (ER) | payer SELFPAY ==
[2017-01-03 14:58] VITALS: BP 122/64
[2017-01-03] MEDS ORDERED: BUTALB/ACETAMINOPHEN/CAFFEINE 1 TAB EACH PO ONE (15:28)
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
== END 2017-01-03 16:30 | disposition left against medical advice (07) ==
LOC: ER 14:26
DX: H11.31 Conjunctival hemorrhage, right eye (principal); R68.84 Jaw pain; Y04.2XXA Assault by strike against or bumped into by another person, initial encounter; Y00.XXXA Assault by blunt object, initial encounter; F17.200 Nicotine dependence, unspecified, uncomplicated; Z53.20 Procedure and treatment not carried out because of patient's decision for unspecified reasons
CPT/HCPCS: 99281; 70486; J3490

== ENCOUNTER 2017-01-04 11:01 | Emergency (ER) | payer SELFPAY ==
[2017-01-04 11:05] VITALS: BP 110/67
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
== END 2017-01-04 12:05 | disposition home or self-care (01) ==
LOC: ER 11:01
DX: H11.31 Conjunctival hemorrhage, right eye (principal); R68.84 Jaw pain; Y04.2XXA Assault by strike against or bumped into by another person, initial encounter; Y00.XXXA Assault by blunt object, initial encounter; F17.200 Nicotine dependence, unspecified, uncomplicated
CPT/HCPCS: 99283

== ENCOUNTER 2017-04-09 12:00 | Emergency (ER) | payer SELFPAY ==
[2017-04-09 12:08] VITALS: BP 111/52
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
[2017-04-09] MEDS ORDERED: ACETAMINOPHEN 325 MG TABLET PO ONE (14:24)
== END 2017-04-09 14:48 | disposition home or self-care (01) ==
LOC: EEVIPCON 12:00 → ER 12:00
DX: S00.83XA Contusion of other part of head, initial encounter (principal); S09.90XA Unspecified injury of head, initial encounter; R51 Headache; R11.0 Nausea; H92.10 Otorrhea, unspecified ear; W21.03XA Struck by baseball, initial encounter; Y93.64 Activity, baseball; F17.200 Nicotine dependence, unspecified, uncomplicated
CPT/HCPCS: 70450; 70486; 99283

== ENCOUNTER 2017-05-11 11:06 | Emergency (ER) | payer OTHER ==
[2017-05-11] MEDS ORDERED: ACETAMINOPHEN 325 MG TABLET PO ONE (11:22)
--- NOTE | 2017-05-11 11:33 | ER Document Report ---
HPI - HPI Pain Level: 3 Notes: Patient is a 27-year-old female with no significant past medical history presents to the ED complaining of acute on chronic lower back pain, left rib pain, and left leg soreness status post injury while at work yesterday. 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 Patient weighs approximately 450 pounds. Patient states that she has had soreness since then and increased soreness starting this morning. Patient is still able to walk, but does limp. She is eating and drinking without any difficulties. She is urinating normally having normal bowel movements. Denies any headache, fever, head injury, LOC, changes in vision/speech/mentation/ hearing, URI, sore throat, chest pain, palpitations, syncope, cough, shortness of breath, wheeze, dyspnea, abdominal pain, nausea/vomiting/diarrhea, urinary retention, dysuria, hematuria, loss of control of bowel or bladder, numbness/ tingling, saddle anesthesia, muscle paralysis/weakness, or rash. - ROS Systems Reviewed and Negative: Yes All other systems reviewed and negative - REPRODUCTIVE Reproductive: DENIES: : - DERM Skin Color: Normal Past Medical History - Social History Smoking Status: Never Smoker Chew tobacco use (# tins/day): No Frequency of alcohol use: None Drug Abuse: None Family History: Reviewed & Not Pertinent Patient has suicidal ideation: No Patient has homicidal ideation: No Renal/ Medical History: Denies: Hx Peritoneal Dialysis Past Surgical History: Reports: Hx Tonsillectomy - Immunizations Immunizations up to date: Yes Hx Diphtheria, Pertussis, Tetanus Vaccination: Yes Vertical Provider Document - CONSTITUTIONAL Agree With Documented VS: Yes Notes: PHYSICAL EXAMINATION: GENERAL: Well-appearing, well-nourished and in no acute distress. A&Ox4. Answers questions appropriately. HEAD: Atraumatic, normocephalic. Non-tender. No fernandez sign EYES: Pupils equal round and reactive to light, extraocular movements intact, sclera anicteric, conjunctiva are normal. No raccoon eyes/entrapment. No nystagmus. ENT: EAC clear b/l. TM's intact b/l without erythema, fluid, or perforation. Nares patent and without discharge. oropharynx clear without exudates. No tonsilar hypertrophy or erythema. Moist mucous membranes. No sinus tenderness. No hemotympanum/CSF discharge. NECK: Normal range of motion, supple without lymphadenopathy. No rigidity. No midline tenderness. Spurling negative. NEXUS negative. + mild tenderness to the c-paraspinal mm left > rt. Chest: No flail chest. equal rise/fall. Non-tender. + tenderness to the left thoracic ribs, mild. No ecchymosis, abrasion, laceration, deformity, step-offs , or erythema noted. LUNGS: Breath sounds clear to auscultation bilaterally and equal. No wheezes rales or rhonchi. HEART: Regular rate and rhythm without murmurs, rubs, gallops. ABDOMEN: Soft, nontender, nondistended abdomen. No guarding, no rebound. No masses appreciated. Normal bowel sounds present. No CVA tenderness bilaterally. Musculoskeletal: Ext b/l: FROM to passive/active. Strength 5+/5. No deficits noted. No bony tenderness of extremities. Back: FROM to passive/active. Strength 5+/5. No vertebral point tenderness, stepoffs, or deformities. No other bony tenderness or ecchymosis. SLR negative b/l. + mild tenderness to the L-paraspinal mm. Extremities: No cyanosis, clubbing, or edema b/l. Peripheral pulses 2+. Capillary refill less than 2 seconds. NEUROLOGICAL: NIH 0. GCS 15. MMSE intact. Cranial nerves grossly intact. Normal speech, normal gait. Normal sensory, motor exams. Reflexes 2+ b/l. HA' s negative. Pronator drift negative. Heel/guerrero, finger/nose wnl. PSYCH: Normal mood, normal affect. SKIN: Warm, Dry, normal turgor, no rashes or lesions noted. - INFECTION CONTROL TRAVEL OUTSIDE OF THE [place] IN LAST 30 DAYS: No Course - Re-evaluation Re-evalutation: 05/11/17 11:34 Pt declined tylenol and states that she does not want naproxen, toradol, motrin , tramadol. Only thing she says she gets for her chronic back pain is morphine/ percocet. At this time, I do not have objective evidence to provide a strong narcotic for her symptoms. We will wait for the XR's. Rib/PA chest and L- spine ordered. Pt states she wants something now for pain so she "can take a nap." Her statements are concerning for me, and at this time I do not feel comfortable providing her narcotics. Dr. Kaplan agrees that her statements are concerning and throw a red flag. 05/11/17 11:44 Pt was wanting to speak with another provider due to not receiving a narcotic. I did review with Dr. Kaplan as he is my supervising and he agrees with my plan , but states that we will give her 1 tab of Morphine IR and nothing else unless objective findings. 05/11/17 13:10 Patient is an afebrile, well-hydrated, 27-year-old female who presents to the ED with contusions and muscle strains with probable muscle spasming based on H& P today. Vitals are stable. PE is otherwise unremarkable for any focal neurological deficits including neurovascular compress, obvious tendon/ligament rupture, obvious fracture/dislocation. X-rays are unremarkable for any acute pathology. Patient is able to ambulate, does but does move slowly because of her soreness. She is tolerating p.o. without any difficulties. Recommend conservative measures for symptoms. I will send her home with a prescription for a muscle relaxer. Recheck with your PCM in 3-5 days. Consider consult with orthopedics and physical therapy. Return to the ED with any worsening/ concerning symptoms otherwise as reviewed in discharge. Patient is in agreement. Patient declined Decadron today. Patient states that she wants a narcotic to go home with. Patient states that when she goes to her primary care doctor when she is "a little hurt" she receives morphine and Percocet. I thoroughly reviewed with patient the risks and benefits of narcotics especially w/o objective findings and she has a 1yo at home to care for. Patient requested to speak with my supervising physician which I gladly agreed to. Dr. Kaplan eval' d and agreed with my treatment plan. See his note. Pt ended up walking off very quickly from the ED prior to having her d/c instructions read to her after telling me that she could not walk to her wheel chair from the table for the XR's because of soreness. Discharge - Discharge Clinical Impression: Muscle strain Low back strain Qualifiers: Encounter type: initial encounter Qualified Code(s): S39.012A - Strain of muscle, fascia and tendon of lower back, initial encounter Contusion of rib on left side Qualifiers: Encounter type: initial encounter Qualified Code(s): S20.212A - Contusion of left front wall of thorax, initial encounter Condition: Stable Disposition: HOME, SELF-CARE Additional Instructions: Rest, Ice, Compression, Elevation Use crutches/splint/sling as directed Tylenol as needed Take medications as directed Light stretches daily Strength exercises as able Moist heat and massage may help F/u with your PCP in 3-5 days for a recheck Consider consult(s) with Orthopedics/physical therapy for ongoing/worsening symptoms Return to the ED with any worsening symptoms and/or development of fever, headache, chest pain, palpitations, syncope, shortness of breath, trouble breathing, abdominal pain, n/v/d, blood in stool/urine, loss of control of bowel /bladder, urinary retention, muscle weakness/paralysis, saddle anesthesia, numbness/tingling, or other worsening symptoms that are concerning to you. Prescriptions: Baclofen [Baclofen 10 mg Tablet] 5 - 10 mg PO BID PRN #10 tablet PRN Reason: Referrals: [facility] [Provider Group] - Follow up as needed
[2017-05-11] MEDS ORDERED: MORPHINE SULFATE IR 15 MG TABLET PO ONE (11:43)
--- NOTE | 2017-05-11 12:12 | RADIOLOGY REPORT (SQ) ---
EXAM DESCRIPTION: L SPINE WHOLE COMPLETED DATE/TIME: 05/11/2017 11:59 am REASON FOR STUDY: crush injury . Fell. Low back pain. COMPARISON: Lumbar spine x-ray 07/04/2016. NUMBER OF VIEWS: Five views including obliques. TECHNIQUE: AP, lateral, oblique, and sacral radiographic images acquired of the lumbar spine. LIMITATIONS: None. FINDINGS: MINERALIZATION: Normal. SEGMENTATION: Normal. No transitional anatomy. ALIGNMENT: Normal. VERTEBRAE: Maintained height. No compression fracture. DISCS: Preserved height. No significant osteophytes or end plate irregularity. POSTERIOR ELEMENTS: Pedicles and facets are intact. No pars defect or posterior arch defects. HARDWARE: None in the spine. PARASPINAL SOFT TISSUES: Normal. PELVIS: SI joints intact. IMPRESSION: No acute radiographic finding at the lumbar spine. TECHNICAL DOCUMENTATION: JOB ID: [id number] [place]-64 2010 [employer] All Rights Reserved
--- NOTE | 2017-05-11 12:14 | RADIOLOGY REPORT (SQ) ---
EXAM DESCRIPTION: RIBS LEFT W/PA CHEST COMPLETED DATE/TIME: 05/11/2017 11:59 am REASON FOR STUDY: crush injury COMPARISON: Left rib series 12/04/2016. TECHNIQUE: Frontal view of the chest and additional views of the left ribs acquired. NUMBER OF VIEWS: Four view. LIMITATIONS: None. FINDINGS: FRONTAL CXR: No pneumothorax. No pleural effusion. No atelectasis or infiltrates. RIBS: No displaced left-sided rib fractures. IMPRESSION: No pneumothorax. No displaced left-sided rib fractures. COMMENT: SITE OF TRAUMA/COMPLAINT MARKED/STAMP COMPLETED: YES. TECHNICAL DOCUMENTATION: JOB ID: [id number] [place]-[id number] 2010 [employer]- All Rights Reserved
[2017-05-11] MEDS ORDERED: DEXAMETHASONE SOD PHOS INJ 10 MG/1 ML VIAL IM ONE (12:31)
--- NOTE | 2017-05-11 13:22 | ER Document Report ---
Doctor's Note Notes: 05/11/17 13:17 I was asked to see this pt. at the request of Mr. Ruth due to pt.'s request of narcotic pain medicine in the ED and for discharge. She was given a percocet PO while here and was told that she would not be getting any narcotic pain medicine on discharge as it was not indicated. I spoke with her about this and she has requested some "oxy's" as that is what she gets from her PCP. I have informed her that we feel narcotic pain medicine is not indicated for her today and we have written her for the medications we feel are appropriate for her. I have told her she can certainly call her PCP for additional pain medications if she so desires.
== END 2017-05-11 13:05 | disposition home or self-care (01) ==
LOC: ER 11:06
DX: S39.012A Strain of muscle, fascia and tendon of lower back, initial encounter (principal); S20.212A Contusion of left front wall of thorax, initial encounter; W50.0XXA Accidental hit or strike by another person, initial encounter; Y93.F2 Activity, caregiving, lifting; Y92.009 Unspecified place in unspecified non-institutional (private) residence as the place of occurrence of the external cause; Y99.0 Civilian activity done for income or pay
CPT/HCPCS: 72110; 99285

== ENCOUNTER 2017-06-01 08:35 | Emergency (ER) | payer SELFPAY ==
[2017-06-01 08:40] VITALS: BP 120/75
--- NOTE | 2017-06-01 09:30 | ER Document Report ---
HPI - HPI Patient complains to provider of: dental pain Onset: Last week Onset/Duration: Worse Quality of pain: Sharp Pain Level: 5 Context: Patient presents complaining of left ear pain and left upper dental pain. Patient states she broke a tooth a week ago but the pain worsened today. Patient denies any fever or facial swelling. Patient states that she came here by ambulance because her pain was so severe. Patient does see a dentist but states they cannot get her in until next month. Associated Symptoms: Earache, Other - Dental pain. denies: Fever Exacerbated by: Denies Relieved by: Denies Similar symptoms previously: Yes Recently seen / treated by doctor: No - ROS ROS below otherwise negative: Yes Systems Reviewed and Negative: Yes All other systems reviewed and negative - CONSTITUTIONAL Constitutional: DENIES: Fever, Chills - EENT EENT: REPORTS: Ear Pain. 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 IN LAST 30 DAYS: No - HEENT HEENT: Atraumatic, Normocephalic Mouth Diagram: 1 - Dental fracture, tenderness, no abscess, no trismus - NECK Neck: Normal Inspection, Supple. negative: Lymphadenopathy-Left, Lymphadenopathy-Right - RESPIRATORY Respiratory: Breath Sounds Normal, No Respiratory Distress O2 Sat by Pulse Oximetry: 100 - CARDIOVASCULAR Cardiovascular: Regular Rate, Regular Rhythm, No Murmur - BACK Back: Normal Inspection - MUSCULOSKELETAL/EXTREMETIES Musculoskeletal/Extremeties: CLIFFORD GARCIA - NEURO Level of Consciousness: Awake, Alert, Appropriate Motor/Sensory: No Motor Deficit - DERM Integumentary: Warm, Dry, No Rash Course - Re-evaluation Re-evalutation: 06/01/17 09:28 Offered patient dental block, patient declined. Patient prefers prescription to go home. Controlled substance database reviewed patient without any signs of. Drainable dental abscess at this time. Patient encouraged to follow-up with her dental care provider for recheck. - Vital Signs Vital signs: Temp Pulse Resp BP Pulse Ox 98.5 F 81 15 120/75 100 06/01/17 08:37 06/01/17 08:37 06/01/17 08:37 06/01/17 08:37 06/01/17 08:37 Discharge - Discharge Clinical Impression: Toothache Condition: Stable Disposition: HOME, SELF-CARE Instructions: Oral Narcotic Medication ([facility]), Penicillin V K ([facility]), Toothache ( [facility]) Additional Instructions: Return immediately for any new or worsening symptoms Followup with your dental care provider, call tomorrow to make a followup appointment You can continue to take Motrin [id number] to help with your pain symptoms Prescriptions: Oxycodone HCl/Acetaminophen [Percocet 5-325 mg Tablet] 1 tab PO ASDIR PRN #8 tablet PRN Reason: Penicillin V Potassium [Penicillin Vk 500 mg Tablet] 500 mg PO BID #20 tablet Referrals: [facility] [Provider Group] - 06/03/17
== END 2017-06-01 09:34 | disposition home or self-care (01) ==
LOC: ER 08:35
DX: K08.9 Disorder of teeth and supporting structures, unspecified (principal); H92.02 Otalgia, left ear
CPT/HCPCS: 99282

== ENCOUNTER 2017-06-03 15:41 | Emergency (ER) | payer SELFPAY ==
[2017-06-03 15:53] VITALS: BP 127/71
--- NOTE | 2017-06-03 16:29 | ER Document Report ---
HPI - HPI Patient complains to provider of: toothache Pain Level: 3 Context: Patient is a 27-year-old female who returns emergency department complaining of tooth pain. Patient states that she ran out of her Percocet that she received here 2 days ago. Otherwise states she has not been taking any Motrin or Tylenol or naproxen. States that she has been taking her penicillin as directed. States that she is due to follow-up with [facility] June 13. Otherwise denies any fevers, chills, difficulty swallowing, difficulty breathing. Any swelling in her neck. Admits to TMJ discomfort. - REPRODUCTIVE LMP: 3 wks Reproductive: DENIES: : Past Medical History - Social History Smoking Status: Unknown if Ever Smoked Family History: Reviewed & Not Pertinent Patient has suicidal ideation: No Patient has homicidal ideation: No Renal/ Medical History: Denies: Hx Peritoneal Dialysis Past Surgical History: Reports: Hx Tonsillectomy - Immunizations Immunizations up to date: Yes Hx Diphtheria, Pertussis, Tetanus Vaccination: Yes Vertical Provider Document - CONSTITUTIONAL Agree With Documented VS: Yes Notes: PHYSICAL EXAM GENERAL: Alert, interacts well. HEENT: NCAT, pale conjunctiva, extraocular movements intact, pupils PERRL. external ear normal, no evidence of external auditory canal tenderness, blood/ drainage, cerumen impaction, TM intact without evidence of effusion, bulging, injection, MMM, Uvula midline. Airway patent. No evidence of tonsillar enlargement, peritonsillar abscess, retropharyngeal abscess. No evidence of abscess or significant facial swelling. No evidence of Parker's angina. Tender over the left TMJ. Nontender over the mastoid process, no crepitus or erythema. NEUROLOGICAL: Alert and oriented x4. Normal speech. PSYCH: Normal affect, normal mood. SKIN: Warm, dry, normal turgor. No rashes or lesions noted. - INFECTION CONTROL TRAVEL OUTSIDE OF THE [place] IN LAST 30 DAYS: No - RESPIRATORY O2 Sat by Pulse Oximetry: 98 Course - Re-evaluation Re-evalutation: 06/03/17 16:28 Patient is a 27-year-old female hemodynamic stable, no acute distress and afebrile. Offered her a dental block which she declined. Discussed with her that I cannot fill her Percocet today and offered to give her a phone number for a dentist in [place] may be able to see her sooner but she declined and states she will keep her appointment with [facility]. Patient left before discharge papers were able to be given to her. Vital signs are stable. - Vital Signs Vital signs: Temp Pulse Resp BP Pulse Ox 98.1 F 91 20 127/71 H 98 06/03/17 15:51 06/03/17 15:51 06/03/17 15:51 06/03/17 15:51 06/03/17 15:51 Discharge - Discharge Clinical Impression: Toothache Condition: Stable Disposition: HOME, SELF-CARE Instructions: Toothache ([facility]), [facility]
== END 2017-06-03 16:20 | disposition home or self-care (01) ==
LOC: ER 15:41
DX: K08.89 Other specified disorders of teeth and supporting structures (principal); Z79.899 Other long term (current) drug therapy
CPT/HCPCS: 99283

== ENCOUNTER 2017-06-17 16:47 | Emergency (ER) | payer SELFPAY ==
[2017-06-17 16:58] VITALS: BP 103/66
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
== END 2017-06-17 18:42 | disposition left against medical advice (07) ==
LOC: ER 16:47
DX: M54.2 Cervicalgia (principal); M54.9 Dorsalgia, unspecified; M79.604 Pain in right leg; Z88.6 Allergy status to analgesic agent
CPT/HCPCS: 99281; L0120

== ENCOUNTER 2017-06-18 12:08 | Emergency (ER) | payer SELFPAY ==
[2017-06-18] MEDS ORDERED: ACETAMINOPHEN 325 MG TABLET PO ONE (14:03)
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
[2017-06-18] MEDS ORDERED: OXYCODONE HCL IR 5 MG TABLET PO ONE (15:12)
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
[2017-06-18 16:02] VITALS: BP 111/56
== END 2017-06-18 16:02 | disposition home or self-care (01) ==
LOC: ER 12:08
DX: S16.1XXA Strain of muscle, fascia and tendon at neck level, initial encounter (principal); S39.012A Strain of muscle, fascia and tendon of lower back, initial encounter; S20.211A Contusion of right front wall of thorax, initial encounter; S89.91XA Unspecified injury of right lower leg, initial encounter; S99.911A Unspecified injury of right ankle, initial encounter; V86.99XA Unspecified occupant of other special all-terrain or other off-road motor vehicle injured in nontraffic accident, initial encounter
CPT/HCPCS: 71046; 72050; 72110; 99283

== ENCOUNTER 2017-07-08 15:58 | Emergency (ER) | payer SELFPAY ==
[2017-07-08 16:05] VITALS: BP 115/66
[2017-07-08] MEDS ORDERED: IBUPROFEN 600 MG TABLET PO ONE (16:33)
--- NOTE | 2017-07-08 16:38 | ER Document Report ---
ED Oral Problem - General Chief Complaint: Mouth Problem Stated Complaint: MOUTH PAIN Time Seen by Provider: 07/08/17 16:15 Mode of Arrival: Ambulatory Information source: Patient TRAVEL OUTSIDE OF THE [place] IN LAST 30 DAYS: No - HPI Patient complains to provider of: Toothache Notes: Patient is here with complaints of dental pain. She reports that she was seen at a dentist earlier today and they told her she needs to come the ER because they could not see her to pull the teeth that need pulled today. She states that they attempted to numb her up but were unsuccessful. She is complaining of right upper and lower dental pain. She denies any recent injuries. She denies any fevers. No nausea, vomiting, diarrhea. No facial swelling. No difficulty breathing or swallowing. In reviewing her records, the patient is seen in the emergency department on multiple occasions for dental pain in the past. She has no other complaints at this time. - Related Data Allergies/Adverse Reactions: codeine [Codeine] Allergy (Verified 07/08/17 16:00) Hives naproxen Allergy (Verified 07/08/17 16:00) tramadol [Tramadol] Allergy (Verified 07/08/17 16:00) Hives Past Medical History - Social History Smoking Status: Unknown if Ever Smoked Family History: Reviewed & Not Pertinent Renal/ Medical History: Denies: Hx Peritoneal Dialysis Past Surgical History: Reports: Hx Tonsillectomy - Immunizations Immunizations up to date: Yes Hx Diphtheria, Pertussis, Tetanus Vaccination: Yes Review of Systems - Review of Systems -: Yes All other systems reviewed and negative Physical Exam - Vital signs Vitals: Temp Pulse Resp BP Pulse Ox 98.4 F 81 16 115/66 99 07/08/17 16:04 07/08/17 16:04 07/08/17 16:04 07/08/17 16:04 07/08/17 16:04 - Notes Notes: GENERAL: alert, cooperative, nontoxic, no distress. HEAD: normocephalic, atraumatic EYES: conjunctiva pink without discharge, no external redness or swelling. EARS: no external swelling, no external redness NOSE: atraumatic, no external swelling MOUTH/THROAT: mucous membranes moist and pink. Widespread dental decay. Tooth #3 with a large Cavity noted. Tooth #30 with a Cavity. No gum swelling. No sign of abscess. No sublingual swelling or induration. No trismus or drooling. NECK: soft, supple, full range of motion, no meningismus. CHEST: no distress, lungs clear and equal throughout. No wheezing, rales, rhonchi. CARDIAC: regular rate and rhythm, no murmur, normal capillary refill, normal pulses. BACK: full range of motion, no CVA tenderness. EXTREMITIES: full range of motion of all extremities. No redness, no swelling. NEURO: alert and oriented 3, no focal deficits, full range of motion of all extremities. PYSCH: appropriate mood, affect. Patient is cooperative. SKIN: pink, warm, dry, no rash. Course - Re-evaluation Re-evalutation: 07/08/17 16:35 Patient is nontoxic appearing with stable vitals. The patient is here with complaints of dental pain. She is noted to have multiple dental cavities on exam. There is no swelling of the gums or signs of infection or abscess. In reviewing her records, she has been seen her multiple times for dental pain in the past. She is requesting a prescription for some pain medication. I offered a dental block, but the patient declines, stating that they tried to dental bolivar at the dentist that she was at earlier today. I will discharge the patient home with prescription for Pen-Vee K with as many dental referrals as I can give her an order for her to see a dentist who can actually address the reason she is having the pain. The patient's emergency department workup and current diagnosis were explained to the patient and or family. Follow-up instructions were provided. Medications if prescribed were discussed. Instructions for when to return to the emergency department including specific worrisome symptoms were discussed with the patient and/or family. - Vital Signs Vital signs: Temp Pulse Resp BP Pulse Ox 98.4 F 81 16 115/66 99 07/08/17 16:04 07/08/17 16:04 07/08/17 16:04 07/08/17 16:04 07/08/17 16:04 Discharge - Discharge Clinical Impression: Pain due to dental caries Condition: Stable Disposition: HOME, SELF-CARE Instructions: Dentist Additional Instructions: Take medications as prescribed. Continue to take Tylenol or Motrin as needed for pain. See a dentist at the next available appointment. Follow-up sooner for worsening pain, fever, difficult to breathing or swallowing, or for any further concerns. Prescriptions: Penicillin V Potassium [Penicillin Vk 500 mg Tablet] 500 mg PO BID #20 tablet Forms: Smoking Cessation Education Referrals: [facility] [Provider Group] - Follow up as needed
== END 2017-07-08 16:48 | disposition home or self-care (01) ==
LOC: ER 15:58
DX: K02.9 Dental caries, unspecified (principal); K08.89 Other specified disorders of teeth and supporting structures
CPT/HCPCS: 99282

== ENCOUNTER 2017-07-10 13:28 | Emergency (ER) | payer SELFPAY ==
[2017-07-10 13:37] VITALS: BP 114/62
[2017-07-10] MEDS ORDERED: DIPH/PERTUSS(ACELL)/TETANUS VAC/PF 0.5 ML SYR (>=10YO) IM ONE (14:12)
[2017-07-10] MEDS ORDERED: HYDROCODONE/ACETAMINOPHEN 5-325 MG TABLET PO ONE (14:12)
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
== END 2017-07-10 15:53 | disposition home or self-care (01) ==
LOC: ER 13:28
DX: S00.83XA Contusion of other part of head, initial encounter (principal); S02.5XXA Fracture of tooth (traumatic), initial encounter for closed fracture; J32.0 Chronic maxillary sinusitis; Y04.0XXA Assault by unarmed brawl or fight, initial encounter
CPT/HCPCS: 70486; 90471; 90715; 99284

== ENCOUNTER 2017-07-20 21:01 | Emergency (ER) | payer SELFPAY ==
[2017-07-20 21:16] VITALS: BP 114/79
--- NOTE | 2017-07-20 22:17 | ER Document Report ---
ED Oral Problem - General Chief Complaint: Toothache Stated Complaint: MOUTH PAIN Time Seen by Provider: 07/20/17 21:47 Mode of Arrival: Medic Information source: Patient TRAVEL OUTSIDE OF THE [place] IN LAST 30 DAYS: No - HPI Patient complains to provider of: Toothache Notes: Patient is here with complaints of dental pain. The patient reports that she saw dentist a few days ago and they performed dental blocks to examine her and she thinks that she has increasing pain since they did that. She complained of pain to multiple teeth in her mouth. She states that they will be seeing her again later this month to have an extraction done. She is here requesting a prescription for some pain medication. She denies any fevers. She denies any difficulty breathing or swallowing. No nausea, vomiting, diarrhea. No other complaints. - Related Data Allergies/Adverse Reactions: codeine [Codeine] Allergy (Verified 07/10/17 13:31) Hives naproxen Allergy (Verified 07/10/17 13:31) tramadol [Tramadol] Allergy (Verified 07/10/17 13:31) Hives Past Medical History - Social History Smoking Status: Unknown if Ever Smoked Family History: Reviewed & Not Pertinent Patient has suicidal ideation: No Patient has homicidal ideation: No Renal/ Medical History: Denies: Hx Peritoneal Dialysis Past Surgical History: Reports: Hx Tonsillectomy - Immunizations Immunizations up to date: Yes Hx Diphtheria, Pertussis, Tetanus Vaccination: Yes Physical Exam - Vital signs Vitals: Temp Pulse Resp BP Pulse Ox 98.4 F 98 16 114/79 97 07/20/17 21:15 07/20/17 21:15 07/20/17 21:15 07/20/17 21:15 07/20/17 21:15 - Notes Notes: GENERAL: alert, cooperative, nontoxic, no distress. HEAD: normocephalic, atraumatic EYES: conjunctiva pink without discharge, no external redness or swelling. EARS: no external swelling, no external redness NOSE: atraumatic, no external swelling MOUTH/THROAT: mucous membranes moist and pink. Widespread dental decay. No drainable abscess identified. No trismus or drooling. No sublingual swelling or induration. Voice is normal. Airway is patent. NECK: soft, supple, full range of motion, no meningismus. CHEST: no distress, lungs clear and equal throughout. No wheezing, rales, rhonchi. CARDIAC: regular rate and rhythm, no murmur, normal capillary refill, normal pulses. BACK: full range of motion, no CVA tenderness. EXTREMITIES: full range of motion of all extremities. No redness, no swelling. NEURO: alert and oriented 3, no focal deficits, full range of motion of all extremities. PYSCH: appropriate mood, affect. Patient is cooperative. SKIN: pink, warm, dry, no rash. Course - Re-evaluation Re-evalutation: 07/20/17 22:15 The patient is nontoxic appearing with stable vitals. She is here with complaints of dental pain. In reviewing her records, the patient has been seen in the emergency department multiple times for dental pain, I actually saw her last time she visited for dental pain. Patient called EMS to be brought in for dental pain. She reports to me today that she was seen by her dentist and had done a block performed for an exam and she feels like her pain is gotten worse since. This is the same story she gave me on her last visit as well. She is currently taking penicillin according to the patient's report. She states that she been taking ibuprofen without any relief of pain. I explained to the patient that we do not prescribe narcotic medications for chronic dental pain as I explained to her on her previous visit, she states that she is just going to leave then. She is not waiting for any discharge papers or referrals. She eloped the emergency department without any discharge paperwork. - Vital Signs Vital signs: Temp Pulse Resp BP Pulse Ox 98.4 F 98 16 114/79 97 07/20/17 21:15 07/20/17 21:15 07/20/17 21:15 07/20/17 21:15 07/20/17 21:15 Discharge - Discharge Clinical Impression: Dental caries Condition: Stable Disposition: ELOPED
== END 2017-07-20 22:22 | disposition left against medical advice (07) ==
LOC: ER 21:01
DX: K02.9 Dental caries, unspecified (principal); K08.89 Other specified disorders of teeth and supporting structures
CPT/HCPCS: 99281

== ENCOUNTER 2017-07-22 14:10 | Emergency (ER) | payer SELFPAY ==
[2017-07-22] MEDS ORDERED: ACETAMINOPHEN 325 MG TABLET PO ONE (14:43)
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
--- NOTE | 2017-07-22 15:39 | ER Document Report ---
ED General - General Chief Complaint: Back Injury Stated Complaint: FALL,BODY PAIN Time Seen by Provider: 07/22/17 14:22 TRAVEL OUTSIDE OF THE [place] IN LAST 30 DAYS: No - HPI Patient complains to provider of: Fall Notes: Patient coming in for evaluation of fall. Patient states she was walking outside procedure to rock falling backwards hitting her head with loss consciousness for approximately 10 seconds. Patient states she has not improved since that time complaining of neck pain headache lower back pain. Patient denies any fevers chills nausea vomiting. Patient is moving all 4 extremities with no signs of distress - Related Data Allergies/Adverse Reactions: codeine [Codeine] Allergy (Verified 07/10/17 13:31) Hives naproxen Allergy (Verified 07/10/17 13:31) tramadol [Tramadol] Allergy (Verified 07/10/17 13:31) Hives Past Medical History - Social History Smoking Status: Unknown if Ever Smoked Family History: Reviewed & Not Pertinent Renal/ Medical History: Denies: Hx Peritoneal Dialysis Past Surgical History: Reports: Hx Tonsillectomy - Immunizations Immunizations up to date: Yes Hx Diphtheria, Pertussis, Tetanus Vaccination: Yes Review of Systems - Review of Systems Constitutional: No symptoms reported EENT: Other - neck pain Cardiovascular: No symptoms reported Respiratory: No symptoms reported Gastrointestinal: No symptoms reported Genitourinary: No symptoms reported Female Genitourinary: No symptoms reported Musculoskeletal: No symptoms reported Skin: No symptoms reported Hematologic/Lymphatic: No symptoms reported Neurological/Psychological: No symptoms reported -: Yes All other systems reviewed and negative Physical Exam - Vital signs Interpretation: Normal - General General appearance: Appears well, Alert - HEENT Head: Normocephalic, Atraumatic Eyes: Normal Pupils: PERRL Notes: C-collar in place - Respiratory Respiratory status: No respiratory distress Chest status: Nontender Breath sounds: Normal Chest palpation: Normal - Cardiovascular Rhythm: Regular Heart sounds: Normal auscultation Murmur: No - Abdominal Inspection: Normal Distension: No distension Bowel sounds: Normal Tenderness: Nontender Organomegaly: No organomegaly - Back Back: Normal, Nontender - Extremities General upper extremity: Normal inspection, Nontender, Normal color, Normal ROM , Normal temperature General lower extremity: Normal inspection, Nontender, Normal color, Normal ROM , Normal temperature, Normal weight bearing. No: Betty's sign - Neurological Neuro grossly intact: Yes Cognition: Normal Orientation: AAOx4 Andrzej Coma Scale Eye Opening: Spontaneous [place] Coma Scale Verbal: Oriented [place] Coma Scale Motor: Obeys Commands [place] Coma Scale Total: 15 Speech: Normal Motor strength normal: LUE, RUE, LLE, RLE Sensory: Normal - Psychological Associated symptoms: Normal affect, Normal mood - Skin Skin Temperature: Warm Skin Moisture: Dry Skin Color: Normal Course - Re-evaluation Re-evalutation: 07/22/17 23:[address] of the neck were all negative. Patient did provide a urine sample with a positive test. Patient did not know that she was . Reevaluation patient still having back pain paraspinal bilateral hip pain however had been seen ambulating although x-rays were ordered at this time do not feel that they were necessary. Patient's discharge papers replaced patient however left the ER walking without assistance prior to receiving her discharge papers encouraged patient to take vitamins and follow-up with her SORT SUPERVISOR or the health department for her . - Laboratory Laboratory results interpreted by me: 07/22/17 14:42 Urine HCG, Qual POSITIVE H Discharge - Discharge Clinical Impression: Closed head injury Qualifiers: Encounter type: initial encounter Qualified Code(s): S09.90XA - Unspecified injury of head, initial encounter Qualifiers: Weeks of gestation: less than 8 weeks Qualified Code(s): Z3A.01 - Less than 8 weeks gestation of Disposition: HOME, SELF-CARE Instructions: Concussion ([facility]), Ice Packs ([facility]), Low Back Pain ([facility]), ([facility]), Warm Packs ([facility]) Additional Instructions: CT of her neck CT of the head did not reveal any significant pathology. Examination does not reveal any signs of bony abnormality or obvious fractures. Unfortunately we are unable to do any x-rays today because of your urinalysis showing that you are . Congratulations. Please take vitamins as prescribed. Would recommend following up with health department or your OB/ PHARMACY SERVICES DIRECTOR. Return to the ER for any worsening of pain. SHe may use warm packs ice packs and Tylenol for pain control Prescriptions: Prenat 115/Iron Fum/Folic/Dss [ 19 Tablet] 1 each PO DAILY #30 tablet Forms: Return to Work
== END 2017-07-22 15:30 | disposition home or self-care (01) ==
LOC: ER 14:10
DX: O9A.211 Injury, poisoning and certain other consequences of external causes complicating pregnancy, first trimester (principal); S06.9X9A Unspecified intracranial injury with loss of consciousness of unspecified duration, initial encounter; W19.XXXA Unspecified fall, initial encounter; Y92.009 Unspecified place in unspecified non-institutional (private) residence as the place of occurrence of the external cause; O99.89 Other specified diseases and conditions complicating pregnancy, childbirth and the puerperium; M54.2 Cervicalgia; M54.5 Low back pain; Z3A.01 Less than 8 weeks gestation of pregnancy; Z88.5 Allergy status to narcotic agent; Z88.8 Allergy status to other drugs, medicaments and biological substances
CPT/HCPCS: 36415; 70450; 72125; 81025; 99284

== ENCOUNTER 2017-10-22 07:06 | Inpatient (IN) | payer MEDICAID ==
[2017-10-22 08:35] LABS: ABSOLUTE EOSINOPHILS # (AUTO) 0.1 10^3/uL (0.0-0.6); ABSOLUTE LYMPHOCYTES (AUTO) 1.1 10^3/uL (0.5-4.7); ABSOLUTE MONOCYTES (AUTO) 0.6 10^3/uL (0.1-1.4); BASOPHILS % (AUTO) 0.4 % (0-2); EOSINOPHILS % (AUTO) 1.5 % (0-6); HEMATOCRIT 37.7 % (36.0-47.0); LYMPHOCYTES % (AUTO) 11.5 % (13-45); MEAN CORPUSCULAR HEMOGLOBIN 31.4 pg (27.0-33.4); MEAN CORPUSCULAR HGB CONC 34.4 g/dL (32.0-36.0); MEAN CORPUSCULAR VOLUME 91 fl (80-97); MONOCYTES % (AUTO) 6.3 % (3-13); PLATELET COUNT 298 10^3/uL (150-450); RED BLOOD COUNT 4.13 10^6/uL (3.72-5.28); RED CELL DISTRIBUTION WIDTH 13.3 % (11.5-14.0); SEGMENTED NEUTROPHILS % (AUTO) 80.3 % (42-78); TOTAL CELLS COUNTED % (AUTO) 100 %; WHITE BLOOD COUNT 9.9 10^3/uL (4.0-10.5)
--- NOTE | 2017-10-22 08:43 | RADIOLOGY REPORT (SQ) ---
EXAM DESCRIPTION: U/S OB 14+ TRNABD 1GES W/O DOP COMPLETED DATE/TIME: 10/22/2017 8:19 am REASON FOR STUDY: iup npnc possible prom for complete ob size, dates COMPARISON: No previous this TECHNIQUE: Static and Dynamic grayscale imaging performed of gravid uterus using transabdominal appr oach. Additional selected color Doppler and spectral images recorded. All stored on PACS. LIMITATIONS: None. FINDINGS: EGA: by multiple measurements, 32 weeks 5 days CONSUELO: Ultrasound estimated due date is 12/12/2017 EFW: 1916 g grams PERCENTILE: 94th percentile HERMANN: 11.6 PLACENTA: Posterior GRADE: I PRESENTATION: Cephalic ANATOMY: HEART RATE: 137 beats per minute. FOUR CHAMBER HEART: Visualized. THREE VESSEL CORD: Yes. CORD INSERTION: Visualized. KIDNEYS AND BLADDER: Visualized. Appear normal. STOMACH: Visualized. Appears normal. SPINE: Normal as visualized. BRAIN AND LATERAL VENTRICLES: Not well seen due to positioning OTHER: No other significant finding. MATERNAL ADNEXA: Maternal ovaries not visualized. CERVICAL LENGTH: Not evaluated OTHER: No other significant finding. IMPRESSION: LIVING INTRAUTERINE . ESTIMATED GESTATIONAL AGE 32 weeks 5 days by multiple measurements, estimated due date today is 2017 Amniotic fluid index 11.6. NO VISUALIZED ANOMALIES. Trimester of : Third trimester - 28 weeks to delivery. TECHNICAL DOCUMENTATION: JOB ID: [id number] [employer]- All Rights Reserved Reading location - IP/workstation name: [email or web address]
[2017-10-22 09:01] LABS: AMNISURE (ROM) POSITIVE (NEGATIVE); T.VAGINALIS (WET MOUNT) NO TRICHOMONAS SEEN
[2017-10-22 09:02] LABS: EPITHELIALS (WET MOUNT) 3+ EPITHELIALS SEEN; WBCS (WET MOUNT) 1+ WBCS SEEN; YEAST (WET MOUNT) NO YEAST SEEN
[2017-10-22 09:06] LABS: AMORPHOUS SEDIMENT,URINE TRACE /HPF; APPEARANCE,URINE CLOUDY; BILIRUBIN,URINE NEGATIVE (NEGATIVE); COLOR,URINE YELLOW; GLUCOSE, URINE 50 mg/dL (NEGATIVE); KETONES,URINE NEGATIVE (NEGATIVE); LEUKOCYTE ESTERASE,URINE SMALL (NEGATIVE); NITRITE,URINE NEGATIVE (NEGATIVE); PROTEIN,URINE >=500 mg/dL (NEGATIVE); URINE SPECIFIC GRAVITY 1.004; UROBILINOGEN,URINE NEGATIVE mg/dL (<2.0)
[2017-10-22] MEDS ORDERED: PENICILLIN G POTASSIUM 5,000,000 UNIT in DEXTROSE 5%-WATER 100 ML IV ONE (09:25)
[2017-10-22 09:28] LABS: RUBELLA INTERPRETATION POSITIVE
[2017-10-22 09:31] LABS: URINE AMPHETAMINES SCREEN NEGATIVE; URINE BARBITURATES SCREEN NEGATIVE; URINE BENZODIAZEPINES SCREEN NEGATIVE; URINE COCAINE SCREEN NEGATIVE; URINE MARIJUANA (THC) SCREEN NEGATIVE; URINE METHADONE SCREEN NEGATIVE; URINE PHENCYCLIDINE SCREEN NEGATIVE
[2017-10-22] MEDS ORDERED: BETAMET ACET/BETAMET NA INJ 6 MG/1 ML ONE (09:31)
[2017-10-22] MEDS ORDERED: MAGNESIUM SULFATE PF/INJ 40 MEQ/10 ML SDV IV ONE (09:31)
[2017-10-22] MEDS ORDERED: PENICILLIN G-K 5 MILLION UNIT VIAL ONE ×4 (09:32→21:39)
[2017-10-22] MEDS ORDERED: MAGNESIUM SULFATE 4 GM/100 ML RTUPB IV ONE (09:32)
[2017-10-22] MEDS ORDERED: MAGNESIUM SULFATE 20 GM/500 ML RTUINJ IV ONE (09:32)
[2017-10-22] MEDS ORDERED: MAGNESIUM SULFATE 20 GM/500 ML RTUINJ IV PRN (09:50)
--- NOTE | 2017-10-22 09:59 | Admission Physical ---
Datetime Report Generated by CPN: 10/22/2017 09:59 CURRENT ADMISSION Hx Assessment: No Care Chief Complaint: Other Chief Complaint Other: PROM Indication for Induction: Not Applicable Admit Impression : , Intrauterine ; No Active Labor; Intact Membranes Admit Plan: Admit to Unit; Initiate Labor Protocol ALLERGIES Medication Allergies: codeine/Hives (10/22/2017); naproxen (10/22/2017); tramadol/Hives (10/22/2017) PHYSICAL EXAM General: Normal HEENT: Deferred Neurologic: Normal Thyroid: Normal Heart: Normal Lungs: Normal Breast: Deferred Back: Normal Abdomen: Normal Genitourinary Exam: Normal Extremities: Normal DTRs: Normal Pelvic Type: Adequate Physical Exam Comments: No Care, thought she had a tumor, has used MJ for nausea, smokes 8 day, denies alcohol or illegal drugs Allergies: Naproxinm Codeine, Tramadol No surgery G5AB1 1st preg= male 37 weeks 2nd preg= 29 weeks in [place] 3rd preg= 38 weeks LMP: Mar 10 + Anxiety, No SI/HI No travel, no Toxo Single, FOB Max, age 20, blk No asthma FETUS A Monitoring: External US FHR- Baseline: 130 Admit Comment: Admit to LD with SROM @ 32+4 weeks, no care, dated my sono this AM, LMP Mar 10, did not realize she was , agnieszka at Plan of care discussed with pt and fiancee, discussed with nursery and they have room to keep pt and baby here Dr. Travis aware of admission and SROM, orders reviewed with him, will start IV antibiotics, IM steroids, Mag Sulfate Monitor closely, Cat 1 strip, rare UC INFORMED CONSENT Assignment: Omar Travis MD Signature: with User ID: [email or web address] : with User ID: [email or web address]
[2017-10-22] MEDS ORDERED: BETAMET ACET/BETAMET NA INJ 6 MG/1 ML IM SCH (10:00)
[2017-10-22 10:26] LABS: CHLAM PCR NOT DETECTED (NOT DETECT); GON PCR NOT DETECTED (NOT DETECT)
[2017-10-22] MEDS ORDERED: ACETAMINOPHEN 325 MG TABLET PO ONE (10:45)
[2017-10-22] MEDS ORDERED: ACETAMINOPHEN 325 MG TABLET ONE ×2 (11:12→16:58)
[2017-10-22] MEDS ORDERED: MAGNESIUM SULFATE/D5W 1 GM/100 ML RTUPB IV ONE (12:30)
[2017-10-22] MEDS ORDERED: HYDROXYZINE PAMOATE 50 MG CAPSULE ONE (17:26)
[2017-10-22] MEDS: PENICILLIN G POTASSIUM 2,500,000 UNIT in DEXTROSE 5%-WATER 50 ML IV SCH ×2 (21:48→22:05)
[2017-10-23] MEDS ORDERED: PENICILLIN G-K 5 MILLION UNIT VIAL ONE ×3 (01:38→10:07)
[2017-10-23] MEDS ORDERED: MAGNESIUM SULFATE 20 GM/500 ML RTUINJ IV ONE (03:41)
[2017-10-23] MEDS: PENICILLIN G POTASSIUM 2,500,000 UNIT in DEXTROSE 5%-WATER 50 ML IV SCH ×2 (03:43→10:10)
[2017-10-23 07:07] LABS: HEPATITS B SURFACE ANTIGEN Negative (Negative)
[2017-10-23] MEDS ORDERED: HYDROXYZINE PAMOATE 50 MG CAPSULE PO PRN ×2 (09:03→09:36)
[2017-10-23] MEDS ORDERED: HYDROXYZINE PAMOATE 50 MG CAPSULE ONE ×2 (09:06→09:18)
[2017-10-23] MEDS ORDERED: BETAMET ACET/BETAMET NA INJ 6 MG/1 ML ONE (09:18)
[2017-10-24 14:42] LABS: HEPATITIS C VIRUS AB <0.1 s/co ratio (0.0-0.9)
--- NOTE | 2017-12-17 18:49 | PDOC DISCHARGE SUMMARY ---
Final Diagnosis Discharge Date: 10/23/17 - Final Diagnosis (1) Delivery normal Is this a current diagnosis for this admission?: No (2) Insufficient care, delivered, current hospitalization Is this a current diagnosis for this admission?: Yes (3) Premature rupture of membranes Is this a current diagnosis for this admission?: Yes (4) UTI (urinary tract infection) Is this a current diagnosis for this admission?: Yes Discharge Data - Discharge Medication Home Medications: Vit/Dha [ Multi + Dha Capsule] 1 cap PO DAILY #90 capsule 10/25 Oxycodone HCl/Acetaminophen [Percocet 5-325 mg Tablet] 1 tab PO ASDIR PRN #6 tablet 10/26/17 Penicillin V Potassium [Penicillin Vk 500 mg Tablet] 500 mg PO BID #20 tablet Clindamycin HCl [Cleocin 300 mg Capsule] 300 mg PO QID #28 capsule 10/28/17 Meloxicam 7.5 mg PO DAILYP PRN #10 tablet 10/29/17 Reason(s) for Admission: Onset of Labor, PROM, Labor Procedures: Management of Obstetric Complications Intrapartum Procedure(s): Spontaneous Vaginal Delivery - Diagnosis Test Laboratory: 10/22/17 10/22/17 08:09 08:15 RBC 4.13 Hgb 13.0 Hct 37.7 Urine Opiates Screen NEGATIVE - Discharge information/Instructions Discharge Activity: Pelvic Rest, No tub bath Discharge Diet: As Tolerated Disposition: AGAINST MEDICAL ADVICE Follow up with: [facility] in: 4 - patient left AMA after ACS protocol completed. She returned 2 hours later and delivered spontaneously
== END 2017-10-23 14:34 | disposition left against medical advice (07) | DRG 781 ==
LOC: LC 07:06 → EEVIPCON 09:30 → LR 09:30
PROVIDERS: ADMIT Obstetrics & Gynecology; ATTEND Obstetrics & Gynecology Gynecology
PROC: 4A1HXCZ Monitoring of Products of Conception, Cardiac Rate, External Approach (ICD-10-PCS; principal; 2017-10-22)
DX: O42.913 Preterm premature rupture of membranes, unspecified as to length of time between rupture and onset of labor, third trimester (principal); O99.343 Other mental disorders complicating pregnancy, third trimester; F41.9 Anxiety disorder, unspecified; Z88.6 Allergy status to analgesic agent; Z91.09 Other allergy status, other than to drugs and biological substances; Z3A.32 32 weeks gestation of pregnancy
CPT/HCPCS: 36415; 76805; 80307; 81001; 84112; 85025; 86592; 86701; 86762; 86803; 86804; 86850; 86900; 86901; 87081; 87210; 87340; 87491; 87591; 96372; J0702; J2540; J3475; Q0114

== ENCOUNTER 2017-10-23 16:10 | Inpatient (IN) | payer SELFPAY ==
[2017-10-23] MEDS ORDERED: MISOPROSTOL 0.2 MG TABLET ONE (16:39)
[2017-10-23] MEDS ORDERED: LIDOCAINE 1% INJ-PF (10 MG/ML) 30 ML SDV ONE (16:39)
[2017-10-23] MEDS ORDERED: OXYTOCIN/NORMAL SALINE 20 UNIT/1,000 ML RTUINJ ONE (16:39)
[2017-10-23] MEDS ORDERED: PENICILLIN G-K 5 MILLION UNIT VIAL ONE (16:39)
--- NOTE | 2017-10-23 16:45 | Admission Physical ---
Datetime Report Generated by CPN: 10/23/2017 16:45 CURRENT ADMISSION Hx Assessment: No Care Chief Complaint: Uterine Contractions; Decreased Movement; Maternal Discomfort; Other Chief Complaint Other: Pt left AMA this afternoon at 1449 reports contractions every 5 minutes and feels like she needs to push Indication for Induction: Not Applicable Admit Impression : , Intrauterine ; Active Labor; Ruptured Membranes Admit Plan: Initiate Labor Protocol ALLERGIES Medication Allergies: Yes Medication Allergies: codeine/Hives (10/22/2017); naproxen (10/22/2017); tramadol/Hives (10/22/2017) Latex: No Latex Allergies OBSTETRICAL HISTORY EDC: 12/12/2017 00:00 : 5 Para: 3 Term: 2 : 1 SAB: 1 IAB: 0 Ectopic: 0 Livin Cesareans: 0 VBACs: 0 Multiple Births: 0 Gestational Diabetes: No Rh Sensitization: No Incompetent Cervix: No TONIA: No Infertility: No ART Treatment: No Uterine Anomaly: No IUGR: No Hx Previous C/S: No Macrosomia: No Hx Loss/Stillborn: No PIH: No Hx : No Placenta Previa/Abruption: No Depression/PP Depression: No PTL/PROM: No Post Hemorrhage: No Current Procedures: Ultrasound Obstetrical History Comments: g1- 2010- baby boy g2- 2011- baby girl g3- 2013- 16 week miscarriage g4-2015- baby girl g5-current SEE RECORDS Alcohol: No Marijuana : No Cocaine: No Other Illicit Drugs: No Cigarettes: Current Everyday Smoker. 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 Surgery: No Heart Disease: No Hosp/Surgery: No Autoimmune Disorder: No Anesthetic Complications: No Kidney Disease: No Abnormal Pap Smear: No Neuro/Epilepsy: No Psychiatric Disorders: No Other Medical Diseases: No Hepatitis/Liver Disease: No Significant Family History: No Varicosities/Phlebitis: No Trauma/Violence : No Thyroid Dysfunction: No INFECTIOUS HISTORY Gonorrhea: No Genital Herpes: No Chlamydia: No Tuberculosis: No Syphilis: No Hepatitis: No HIV/AIDS Exposure: No Rash or Viral Illness: No HPV: No PHYSICAL EXAM General: Normal HEENT: Deferred Neurologic: Normal Thyroid: Deferred Heart: Normal Lungs: Normal Breast: Deferred Back: Deferred Abdomen: Normal Genitourinary Exam: Normal Extremities: Normal DTRs: Deferred Pelvic Type: Adequate Physical Exam Comments: No Care, thought she had a tumor, has used MJ for nausea, smokes 8 day, denies alcohol or illegal drugs Allergies: Naproxinm Codeine, Tramadol No surgery G5AB1 1st preg= male 37 weeks 2nd preg= 29 weeks in [place] 3rd preg= 38 weeks LMP: Nov 26 + Anxiety, No SI/HI No travel, no Toxo Single, FOB Max, age 20, blk No asthma VAGINAL EXAM Dilatation: 6 Effacement: 90 Station: 2 MEMBRANES Membranes: Ruptured Amniotic Fluid Color: Clear FETUS A EGA: 32.6 Monitoring: External US FHR- Baseline: 140 Presentation: Vertex Admit Comment: See previous Admit, pt left AMA at 1446 has had 5 doses of PCN, last dose 6 hrs ago PLANS FOR LABOR AND DELIVERY Labor and Delivery: None Pain Management: Natural Feeding Preference: Formula Benefit of Breast Feed Discussed: Yes Circumcision: Yes INFORMED CONSENT Assignment: Marleni Augustin MD Signature: with User ID: [email or web address] : with User ID: [email or web address]
[2017-10-23] MEDS ORDERED: RINGERS SOLUTION,LACTATED 1,000 ML IV PRN (16:47)
[2017-10-23] MEDS ORDERED: PENICILLIN G POTASSIUM 5,000,000 UNIT in DEXTROSE 5%-WATER 100 ML IV ONE (16:47)
[2017-10-23 17:47] LABS: HEMATOCRIT 35.1 % (36.0-47.0); HEMOGLOBIN 11.6 g/dL (12.0-15.5); MEAN CORPUSCULAR HEMOGLOBIN 30.3 pg (27.0-33.4); MEAN CORPUSCULAR HGB CONC 32.9 g/dL (32.0-36.0); MEAN CORPUSCULAR VOLUME 92 fl (80-97); PLATELET COUNT 265 10^3/uL (150-450); RED BLOOD COUNT 3.82 10^6/uL (3.72-5.28); RED CELL DISTRIBUTION WIDTH 13.4 % (11.5-14.0); WHITE BLOOD COUNT 11.9 10^3/uL (4.0-10.5)
[2017-10-23] MEDS ORDERED: DIPH/PERTUSS(ACELL)/TETANUS VAC/PF 0.5 ML SYR (>=10YO) IM PRN ×2 (17:58→19:07)
[2017-10-23] MEDS ORDERED: DIBUCAINE 1% OINTMENT 28 GM TP PRN ×2 (17:58→19:07)
[2017-10-23] MEDS ORDERED: PSEUDOEPHEDRINE HCL 30 MG TABLET PO PRN (17:58)
[2017-10-23] MEDS ORDERED: ZOLPIDEM TARTRATE 5 MG TABLET PO PRN ×2 (17:58→19:07)
[2017-10-23] MEDS ORDERED: GLYCERIN/WITCH HAZEL LEAF 1 EACH MED..PAD TP PRN (17:58)
[2017-10-23] MEDS ORDERED: BENZOCAINE/MENTHOL AEROSOL SPRAY 56 ML TOP PRN ×2 (17:58→19:07)
[2017-10-23] MEDS ORDERED: PROMETHAZINE HCL 25 MG TABLET PO PRN (17:58)
[2017-10-23] MEDS ORDERED: DIPHENHYDRAMINE HCL 25 MG CAPSULE PO PRN (17:58)
[2017-10-23] MEDS ORDERED: MAGNESIUM HYDROXIDE SUSP 30 ML UDCUP PO PRN (17:58)
[2017-10-23] MEDS ORDERED: PROMETHAZINE HCL 25 MG SUPP.RECT PR PRN (17:58)
[2017-10-23] MEDS ORDERED: PROMETHAZINE HCL INJ 25 MG/1 ML VIAL IV PRN (17:58)
[2017-10-23] MEDS ORDERED: NA PHOS,M-B/NA PHOS,DI-BA (ADULT) 133 ML ENEMA PR PRN (17:58)
[2017-10-23] MEDS ORDERED: MEASLES,MUMPS&RUBELLA VACC/PF 0.5 ML VIAL SUBCUT PRN ×2 (17:58→19:07)
[2017-10-23] MEDS ORDERED: DOCUSATE SODIUM 100 MG CAPSULE PO SCH (18:00)
[2017-10-23] MEDS ORDERED: FERROUS SULFATE 325 MG TABLET PO SCH (18:00)
[2017-10-23] MEDS ORDERED: ACETAMINOPHEN 325 MG TABLET PO PRN (18:01)
[2017-10-23] MEDS ORDERED: IBUPROFEN 800 MG TABLET ONE (18:04)
--- NOTE | 2017-10-23 18:42 | Delivery Summary ---
Del Sum A-C Datetime Report Generated by CPN: 10/23/2017 18:41 DELIVERY PERSONNEL DELIVERY PERSONNEL: [id number] Delivery Doctor:: Regla Marin CNM Nurse Aircraft Manager Certified:: Regla Marin CNM Labor and Delivery Nurse:: Meenakshi Cid RNinstructional design specialist Nurse:: DANICA Roa Nursery Nurse:: Isabel Villaseñor RN Nursery Nurse:: Giovanna Otero RN Feltmaker/TAPE RECORDING MACHINE OPERATOR: Magaly Gamble CNA II Additional Personnel: : Margot Austin RN MATERNAL INFORMATION Delivery Anesthesia: None Medications After Delivery: Other-Please Comment Meds After Delivery Comment: Cytotec 1000 mcg [place] Maternal Complications: Other Complication Details: No care PPROM Provider Comments: Pt left AMA at 1446, presented back with c/o contractions Q5min and urge to push. Was 6cm and rapidly changed to complete with involuntary pushing. Infant vertex RAMÓN, clear fluid noted, cord clamped x2 cut and handed off to Nursery staff. Spont cry/cough, vigorous. Placenta del spont via carter. Mother stable, no bleeding noted, fundus firmed immediately. Apgars 9,9. Wt 3lb 15oz LABOR SUMMARY EDC: 12/12/2017 00:00 No. Babies in Womb: 1 Attempted: No Labor Anesthesia: None LABOR INFORMATION Reason for Induction: Not Applicable Onset of Labor: 10/23/2017 16:45 Complete Dilatation: 10/23/2017 16:55 Oxytocin: N/A Group B Beta Strep: Unknown Antibiotics # of Doses: 7 Antibiotics Time of Last Dose: 1655 Name of Antibiotic Given: Penicillin Steroids Given: > 24 Hours before Delivery Reason Steroids Not Administered: Not Applicable MEMBRANES Membranes Rupture Method: Spontaneous Rupture of Membranes: 10/22/2017 06:40 Length of Rupture (hr): 34.45 Amniotic Fluid Color: Clear Amniotic Fluid Amount: Moderate Amniotic Fluid Odor: Normal STAGES OF LABOR Stage 1 hr: 0 Stage 1 min: 10 Stage 2 hr: 0 Stage 2 min: 12 Stage 3 hr: 0 Stage 3 min: 6 Total Time in Labor hr: 0 Total Time in Labor min: 28 VAGINAL DELIVERY Episiotomy: None Laceration #1: None Laceration Repair: Not Applicable Sponge Count Correct: Yes Sharps Count Correct: Yes CSECTION DELIVERY Primary Indication: N/A Secondary Indication: N/A CSection Incidence: N/A Labor: N/A Elective: N/A CSection Incision: N/A BABY A INFORMATION Delivery Date/Time: 10/23/2017 17:07 Method of Delivery: Vaginal Born in Route : No : N/A Forceps: N/A Vacuum Extraction: N/A Shoulder Dystocia : No PRESENTATION/POSITION BABY A Presentation: Cephalic Cephalic Presentation: Vertex Vertex Position: Left Occipital Anterior Breech Presentation: N/A PLACENTA INFORMATION BABY A Placenta Delivery Time : 10/23/2017 17:13 Placenta Method of Delivery: Spontaneous Placenta Status: Delivered SCORES BABY A Heart Rate 1 min: >100 bpm Resp Effort 1 min: Good Cry Reflex Irritability 1 min: Cough or Sneeze or Pulls Away Muscle Tone 1 min: Active Motion Color 1 min: Body Spearman, Extremities Blue Resuscitation Effort 1 min: Tactile Stimulation SCORE 1 MIN: 9 Heart Rate 5 min: >100 bpm Resp Effort 5 min: Good Cry Reflex Irritability 5 min: Cough or Sneeze or Pulls Away Muscle Tone 5 min: Active Motion Color 5 min: Body Spearman, Extremities Blue Resuscitation Effort 5 min: Tactile Stimulation SCORE 5 MIN: 9 INFORMATION BABY A Gestational Age at Delivery: 32.6 Gestational Status: - <34 Weeks Outcome : Liveborn Infant Condition : Fair Infant Sex: Male IDENTIFICATION BABY A Verification Date/Time: 10/23/2017 17:39 ID Band Number: [id number] Mother's Name Verified: Yes RN Verifying Infant: LuanRichardson Augustin, RN, DRichardson Blanca, US WEIGHT/LENGTH BABY A Infant Birthweight (gm): 1777 Infant Weight (lb): 3 Infant Weight (oz): 15 Length (in): 16.50 Length (cm): 41.91 CORD INFORMATION BABY A No. Cord Vessels: 3 Nuchal Cord : N/A Cord Blood Taken: Yes-For Eval (Mom's Blood Type - or O+) Infant Suction: None ASSESSMENT BABY A Skin to Skin: No BABY B INFORMATION : N/A SIGNATURES Assignment: Marleni Augustin MD Signature: with User ID: [email or web address] : with User ID: [email or web address] : I was personally available for consultation and serving as supervising physician for the MLP.
[2017-10-23] MEDS ORDERED: OXYTOCIN/NORMAL SALINE 20 UNIT/1,000 ML RTUINJ IV PRN (19:07)
[2017-10-23] MEDS ORDERED: OXYCODONE-ACETAMINOPHEN 5-325 MG TABLET PO PRN (20:09)
[2017-10-23] MEDS: OXYCODONE-ACETAMINOPHEN 5-325 MG TABLET PO PRN (20:37)
[2017-10-23] MEDS ORDERED: PENICILLIN G POTASSIUM 2,500,000 UNIT in DEXTROSE 5%-WATER 50 ML IV SCH (20:48)
[2017-10-23] MEDS: DOCUSATE SODIUM 100 MG CAPSULE PO SCH (21:30)
[2017-10-23] MEDS: FERROUS SULFATE 325 MG TABLET PO SCH (21:30)
[2017-10-23] MEDS ORDERED: IBUPROFEN 800 MG TABLET PO SCH (22:00)
[2017-10-23] MEDS ORDERED: FAMOTIDINE 20 MG TABLET PO SCH (22:00)
[2017-10-24] MEDS: OXYCODONE-ACETAMINOPHEN 5-325 MG TABLET PO PRN ×5 (00:44→20:09)
[2017-10-24] MEDS: IBUPROFEN 800 MG TABLET PO SCH ×3 (01:52→17:32)
[2017-10-24 08:23] LABS: HEMATOCRIT 29.5 % (36.0-47.0); HEMOGLOBIN 10.1 g/dL (12.0-15.5); MEAN CORPUSCULAR HEMOGLOBIN 31.4 pg (27.0-33.4); MEAN CORPUSCULAR HGB CONC 34.2 g/dL (32.0-36.0); MEAN CORPUSCULAR VOLUME 92 fl (80-97); PLATELET COUNT 240 10^3/uL (150-450); RED BLOOD COUNT 3.22 10^6/uL (3.72-5.28); RED CELL DISTRIBUTION WIDTH 13.3 % (11.5-14.0); WHITE BLOOD COUNT 15.3 10^3/uL (4.0-10.5)
[2017-10-24] MEDS ORDERED: PRENATAL VITAMIN W DHA CAPSULE PO SCH (10:00)
[2017-10-24] MEDS ORDERED: SENNOSIDES/DOCUSATE 8.6-50 MG 1 EACH TABLET PO SCH (10:00)
[2017-10-24] MEDS ORDERED: MEDROXYPROGESTERONE ACET INJ 150 MG/1 ML VIAL IM ONE (10:17)
--- NOTE | 2017-10-24 10:20 | PDOC PROGRESS REPORT ---
Subjective-OB Progress Note for:: 10/24/17 Subjective: states she is formula feeding, requests depo and wants BTL, instructed to go to office after discharge and sign title XX. reports bleeding slowing, pain controlled with current meds. Physical Exam (OB) Vital Signs: Temp Pulse Resp BP Pulse Ox 97.8 F 56 L 20 122/71 100 10/24/17 08:45 10/24/17 08:45 10/24/17 08:45 10/24/17 08:45 10/24/17 08:45 Intake & Output 10/23/17 10/24/17 10/25/17 06:59 06:59 06:59 Intake Total 400 Balance 400 Weight 62.8 kg - Lochia Lochia Amount: Scant < 10 ml Lochia Color: Rubra/Red - Abdomen Description: Soft, Round Hernia Present: No Fundal Description: Firm, Midline Fundal Height: u/u - u/2 - Abdominal Inspection: Normal Distension: No distension Tenderness: Nontender - Genitourinary Female External exam: Normal - Extremities Lower extremities: Betty's sign - neg Calf: Normal, Nontender Objective-Diagnostic Laboratory: 10/24/17 07:48 10/23/17 10/24/17 17:33 07:48 WBC 11.9 H 15.3 H RBC 3.82 3.22 L Hgb 11.6 L 10.1 L Hct 35.1 L 29.5 L MCV 92 92 MCH 30.3 31.4 MCHC 32.9 34.2 RDW 13.4 13.3 Plt Count 265 240 Assessment and Plan(PN) - Assessment and Plan (1) Delivery normal Is this a current diagnosis for this admission?: Yes - Time Spent with Patient Time with patient: Less than 15 minutes - Disposition Anticipated Discharge: Home Within: within 24 hours
[2017-10-24] MEDS: PRENATAL VITAMIN W DHA CAPSULE PO SCH (10:34)
[2017-10-24] MEDS: DOCUSATE SODIUM 100 MG CAPSULE PO SCH ×2 (10:35→22:06)
[2017-10-24] MEDS: SENNOSIDES/DOCUSATE 8.6-50 MG 1 EACH TABLET PO SCH (10:35)
[2017-10-24] MEDS: FERROUS SULFATE 325 MG TABLET PO SCH ×2 (10:35→22:05)
[2017-10-25] MEDS: OXYCODONE-ACETAMINOPHEN 5-325 MG TABLET PO PRN ×5 (00:24→17:19)
[2017-10-25] MEDS: IBUPROFEN 800 MG TABLET PO SCH ×3 (01:44→17:20)
[2017-10-25 08:21] VITALS: BP 116/72
[2017-10-25] MEDS: FERROUS SULFATE 325 MG TABLET PO SCH (08:57)
[2017-10-25] MEDS: SENNOSIDES/DOCUSATE 8.6-50 MG 1 EACH TABLET PO SCH (08:57)
[2017-10-25] MEDS: PRENATAL VITAMIN W DHA CAPSULE PO SCH (08:57)
--- NOTE | 2017-10-25 10:33 | PDOC DISCHARGE SUMMARY ---
Final Diagnosis Discharge Date: 10/25/17 - Final Diagnosis (1) Anxiety Is this a current diagnosis for this admission?: Yes (2) Delivery normal Is this a current diagnosis for this admission?: Yes (3) Drug abuse Is this a current diagnosis for this admission?: Yes (4) Insufficient care, delivered, current hospitalization Is this a current diagnosis for this admission?: Yes (5) Premature rupture of membranes Is this a current diagnosis for this admission?: Yes Discharge Data - Discharge Medication Home Medications: No Home Medications 10/22/17 Reason(s) for Admission: PROM, Labor Procedures: NST Intrapartum Procedure(s): Spontaneous Vaginal Delivery - Diagnosis Test Laboratory: Temp Pulse Resp BP Pulse Ox 97.6 F 60 16 116/72 100 10/25/17 10:15 10/25/17 10:15 10/25/17 10:15 10/25/17 07:29 10/25/17 10:15 10/23/17 10/24/17 17:33 07:48 RBC 3.82 3.22 L Hgb 11.6 L 10.1 L Hct 35.1 L 29.5 L - Discharge information/Instructions Discharge Activity: Balance Activity w/Rest, Pelvic Rest Discharge Diet: Regular Disposition: HOME, SELF-CARE Follow up with: [facility] in: 3, Weeks
[2017-10-25] MEDS: DOCUSATE SODIUM 100 MG CAPSULE PO SCH (10:39)
== END 2017-10-25 18:30 | disposition home or self-care (01) | DRG 775 ==
LOC: LC 16:10 → LR 16:42 → 2S 19:14
PROVIDERS: ADMIT Obstetrics & Gynecology; ATTEND Obstetrics & Gynecology
PROC: 10E0XZZ Delivery of Products of Conception, External Approach (ICD-10-PCS; principal; 2017-10-23)
DX: O42.113 Preterm premature rupture of membranes, onset of labor more than 24 hours following rupture, third trimester (principal); O60.14X0 Preterm labor third trimester with preterm delivery third trimester, not applicable or unspecified; O99.324 Drug use complicating childbirth; O99.334 Smoking (tobacco) complicating childbirth; F17.210 Nicotine dependence, cigarettes, uncomplicated; F12.10 Cannabis abuse, uncomplicated; F41.9 Anxiety disorder, unspecified; Z3A.32 32 weeks gestation of pregnancy; Z37.0 Single live birth
CPT/HCPCS: 36415; 85027; 86592; 86850; 86900; 86901; 88307; J1050; J2540; J2590; J3490

== ENCOUNTER 2017-10-26 07:53 | Emergency (ER) | payer SELFPAY ==
[2017-10-26 08:10] VITALS: BP 119/63
[2017-10-26] MEDS ORDERED: PENICILLIN V POTASSIUM 500 MG TABLET PO ONE (09:05)
[2017-10-26] MEDS ORDERED: OXYCODONE-ACETAMINOPHEN 5-325 MG TABLET PO ONE (09:05)
--- NOTE | 2017-10-26 09:05 | ER Document Report ---
HPI - HPI Patient complains to provider of: Dental pain Onset: Last week Onset/Duration: Gradual Quality of pain: Achy Pain Level: 5 Context: Patient states that she was on a medication to help her newborns lungs develop as she just recently delivered 3 days ago. Patient states that this medication can cause dental problems. Patient complains of multiple teeth chipping and that her gingiva has been swollen. Patient denies any fever. Associated Symptoms: Other - Dental pain. denies: Fever Exacerbated by: Denies Relieved by: Denies Similar symptoms previously: Yes Recently seen / treated by doctor: Yes - ROS ROS below otherwise negative: Yes Systems Reviewed and Negative: Yes All other systems reviewed and negative - CONSTITUTIONAL Constitutional: DENIES: Fever - EENT Notes: Dental problems - RESPIRATORY Respiratory: DENIES: Coughing - GASTROINTESTINAL Gastrointestinal: DENIES: Nausea, Patient vomiting - REPRODUCTIVE Reproductive: DENIES: : - DERM Skin Color: Normal Skin Problems: None Past Medical History - General Information source: Patient - Social History Smoking Status: Current Every Day Smoker Chew tobacco use (# tins/day): No Smoking Education Provided: Yes Frequency of alcohol use: None Drug Abuse: None Occupation: None Lives with: Family Family History: Reviewed & Not Pertinent Patient has suicidal ideation: No Patient has homicidal ideation: No - Medical History Medical History: Negative Renal/ Medical History: Denies: Hx Peritoneal Dialysis Past Surgical History: Reports: Hx Tonsillectomy - Immunizations Immunizations up to date: Yes Hx Diphtheria, Pertussis, Tetanus Vaccination: Yes Vertical Provider Document - CONSTITUTIONAL Agree With Documented VS: Yes Exam Limitations: No Limitations General Appearance: WD/WN, No Apparent Distress - INFECTION CONTROL TRAVEL OUTSIDE OF THE [place] IN LAST 30 DAYS: No - HEENT HEENT: Atraumatic, Normocephalic. negative: Pharyngeal Tenderness, Pharyngeal Erythema, Tympanic Membrane Red, Tympanic Membrane Bulging Mouth Diagram: 1 - Dental decay, fracture 2 - Dental decay, fracture 3 - Dental decay, no trismus, no sublingual or submental swelling - NECK Neck: Normal Inspection, Supple. negative: Lymphadenopathy-Left, Lymphadenopathy-Right - RESPIRATORY Respiratory: Breath Sounds Normal, No Respiratory Distress - CARDIOVASCULAR Cardiovascular: Regular Rate, Regular Rhythm - BACK Back: Normal Inspection - MUSCULOSKELETAL/EXTREMETIES Musculoskeletal/Extremeties: MAEW - NEURO Level of Consciousness: Awake, Alert, Appropriate Motor/Sensory: No Motor Deficit - DERM Integumentary: Warm, Dry, No Rash Course - Vital Signs Vital signs: Temp Pulse Resp BP Pulse Ox 98.7 F 79 16 119/63 100 10/26/17 08:08 10/26/17 08:08 10/26/17 08:08 10/26/17 08:08 10/26/17 08:08 Discharge - Discharge Clinical Impression: Toothache Condition: Stable Disposition: HOME, SELF-CARE Instructions: Acetaminophen, Oral Narcotic Medication ([facility]), Penicillin V K ( [facility]), Toothache ([facility]) Additional Instructions: Return immediately for any new or worsening symptoms Followup with your primary care provider, call tomorrow to make a followup appointment Follow-up with a dental care provider Prescriptions: Oxycodone HCl/Acetaminophen [Percocet 5-325 mg Tablet] 1 tab PO ASDIR PRN #6 tablet PRN Reason: Penicillin V Potassium [Penicillin Vk 500 mg Tablet] 500 mg PO BID #20 tablet Forms: Smoking Cessation Education Referrals: [facility] [Provider Group] - Follow up as needed
== END 2017-10-26 09:19 | disposition home or self-care (01) ==
LOC: ER 07:53
DX: O99.63 Diseases of the digestive system complicating the puerperium (principal); K02.9 Dental caries, unspecified; K08.89 Other specified disorders of teeth and supporting structures; O99.335 Smoking (tobacco) complicating the puerperium
CPT/HCPCS: 99282

== ENCOUNTER 2017-10-28 13:04 | Emergency (ER) | payer SELFPAY ==
[2017-10-28] MEDS ORDERED: ACETAMINOPHEN 325 MG TABLET PO ONE (14:20)
--- NOTE | 2017-10-28 14:24 | ER Document Report ---
ED General - General Chief Complaint: Toothache Stated Complaint: TOOTH PAIN Time Seen by Provider: 10/28/17 13:54 TRAVEL OUTSIDE OF THE [place] IN LAST 30 DAYS: No - HPI Notes: 27-year-old female presents with dental pain. Patient describes a week or more gradual onset left maxillary lateral incisor pain. Some mild swelling as well. Throbbing and aching, temperature sensitive. Was seen and took penicillin and some type of analgesic but ran out. She is scheduled to see her dentist next week. No fever No other modifying factors, no other associated symptoms, no other provocative or palliative factors. Nonradiating - Related Data Allergies/Adverse Reactions: codeine [Codeine] Allergy (Verified 10/28/17 13:05) Hives naproxen Allergy (Verified 10/28/17 13:05) tramadol [Tramadol] Allergy (Verified 10/28/17 13:05) Hives Past Medical History - Social History Smoking Status: Smoker,Current Status Unk Family History: Reviewed & Not Pertinent - Medical History Medical History: Negative Renal/ Medical History: Denies: Hx Peritoneal Dialysis Past Surgical History: Reports: Hx Tonsillectomy - Immunizations Immunizations up to date: Yes Hx Diphtheria, Pertussis, Tetanus Vaccination: Yes Review of Systems - Review of Systems Notes: Review of systems as in history of present illness, otherwise no significant headache, chest pain, abdominal pain. Physical Exam - Vital signs Vitals: Temp Pulse Resp BP Pulse Ox 98.3 F 73 20 120/81 100 10/28/17 13:18 10/28/17 13:18 10/28/17 13:18 10/28/17 13:18 10/28/17 13:18 - Notes Notes: General: Well devloped, no acute distress. HEENT: Normocephalic, atraumatic. Pupils equal round reactive to light. Mucosa moist. No JVD. Poor dentition, mild gingival erythema and fullness about the left lateral incisor. Chest: No trauma, normal excursion. Respiratory: Good air exchange, normal excursion. Cardiac: Regular rhythm Abdomen: Soft, benign. Nondistended. Back: No asymmetry or gross abnormality. Motor: Grossly normal power and tone. Neurologic: Alert, nonfocal. Vascular: Well perfused Skin: No petechiae or purpura Course - Re-evaluation Re-evalutation: 10/28/17 14:21 Well-appearing female dental infection, nothing drainable in the ED. She claims to have failed outpatient penicillin, will change to clindamycin, encouraged her to take as directed. Tylenol for pain. States she is allergic to NSAIDs. She will follow-up with her dentist. - Vital Signs Vital signs: Temp Pulse Resp BP Pulse Ox 98.3 F 73 20 120/81 100 10/28/17 13:18 10/28/17 13:18 10/28/17 13:18 10/28/17 13:18 10/28/17 13:18 Discharge - Discharge Clinical Impression: Dental infection Condition: Good Disposition: HOME, SELF-CARE Instructions: [facility], Toothache (H) Prescriptions: Clindamycin HCl [Cleocin 300 mg Capsule] 300 mg PO QID #28 capsule
[2017-10-28 14:32] VITALS: BP 126/80
== END 2017-10-28 14:32 | disposition home or self-care (01) ==
LOC: ER 13:04
DX: K04.7 Periapical abscess without sinus (principal); K08.89 Other specified disorders of teeth and supporting structures; Z88.5 Allergy status to narcotic agent; Z88.8 Allergy status to other drugs, medicaments and biological substances
CPT/HCPCS: 99282

== ENCOUNTER 2017-10-29 15:08 | Emergency (ER) | payer SELFPAY ==
[2017-10-29 15:13] VITALS: BP 134/76
--- NOTE | 2017-10-29 16:01 | ER Document Report ---
ED General - General Chief Complaint: Mouth Problem Stated Complaint: MOUTH PAIN Time Seen by Provider: 10/29/17 15:40 Notes: 27-year-old female here with complaints of continued dental pain ongoing for the past 8 days. She has been seen here twice previously and prescribed penicillin and most recently yesterday was prescribed clindamycin. She was given a prescription for narcotic pain medication at her first visit and has run out and is here for a refill. She reports making an appointment with the dentist for November 12. Pain is worse with eating. Her lip is also swollen. TRAVEL OUTSIDE OF THE [place] IN LAST 30 DAYS: No - Related Data Allergies/Adverse Reactions: codeine [Codeine] Allergy (Verified 10/28/17 13:05) Hives naproxen Allergy (Verified 10/28/17 13:05) tramadol [Tramadol] Allergy (Verified 10/28/17 13:05) Hives Past Medical History - Social History Smoking Status: Unknown if Ever Smoked Family History: Reviewed & Not Pertinent Patient has suicidal ideation: No Patient has homicidal ideation: No Renal/ Medical History: Denies: Hx Peritoneal Dialysis Past Surgical History: Reports: Hx Tonsillectomy - Immunizations Immunizations up to date: Yes Hx Diphtheria, Pertussis, Tetanus Vaccination: Yes Review of Systems - Review of Systems Notes: See history of present illness for pertinent positive review of systems; otherwise all review of systems have been reviewed and are negative Physical Exam - Vital signs Vitals: Temp Pulse Resp BP Pulse Ox 98.6 F 98 18 134/76 H 100 10/29/17 15:12 10/29/17 15:12 10/29/17 15:12 10/29/17 15:12 10/29/17 15:12 - Notes Notes: PHYSICAL EXAMINATION: GENERAL: Well-appearing and in no acute distress. HEAD: Atraumatic, normocephalic. EYES: Pupils equal round and reactive to light, extraocular movements intact, sclera anicteric, conjunctiva are normal. ENT: nares patent, oropharynx clear without exudates. Moist mucous membranes. Upper lip with mild swelling. Poor dentition throughout. There is tenderness of the gingiva anteriorly with mild swelling however no fluctuance or drainage visualized NECK: Normal range of motion, supple without lymphadenopathy LUNGS: CTAB and equal. No wheezes rales or rhonchi. HEART: Regular rate and rhythm without murmurs ABDOMEN: Soft, no tenderness. No facial grimacing/wincing upon palpation. No guarding, no rebound. EXTREMITIES: Normal range of motion, no pitting edema. No cyanosis. NEUROLOGICAL: Cranial nerves grossly intact. Normal sensory/motor exams. PSYCH: Normal mood, normal affect. SKIN: Warm, Dry, normal turgor, no rashes or lesions noted Course - Re-evaluation Re-evalutation: 10/29/17 16:00 MEDICAL DECISION MAKING: Concern for gingivitis versus dental abscess versus facial abscess I have discussed with the patient obtaining a CT scan She is more concerned about obtaining narcotic pain medication than CT imaging Patient and significant other are very agitated/irritated that I will not give her narcotics After inquiring multiple times, she is not willing to undergo a CT scan regarding her facial swelling/infection Discussed with her following up with a dentist sooner than the if possible Will prescribe her meloxicam and return precautions given Today, she does not have an emergency medical condition identified through her medical screening exam Patient understands and agrees to the plan of care - Vital Signs Vital signs: Temp Pulse Resp BP Pulse Ox 98.6 F 98 18 134/76 H 100 10/29/17 15:12 10/29/17 15:12 10/29/17 15:12 10/29/17 15:12 10/29/17 15:12 Discharge - Discharge Clinical Impression: Pain, dental Condition: Good Disposition: HOME, SELF-CARE Instructions: [facility] Additional Instructions: You were seen in the emergency department at [facility]. Use the prescribed medication as needed for pain. Please followup with a dentist in the next few days for further management/evaluation. Please return to the emergency department for worsening of symptoms or any symptom that you deem to be concerning or life-threatening. Thank you for allowing us to be part of your care. Prescriptions: Meloxicam 7.5 mg PO DAILYP PRN #10 tablet PRN Reason: Referrals: [facility] [NO LOCAL MD] - Follow up tomorrow
== END 2017-10-29 16:04 | disposition home or self-care (01) ==
LOC: ER 15:08
DX: K13.79 Other lesions of oral mucosa (principal); Z88.6 Allergy status to analgesic agent
CPT/HCPCS: 99282

== ENCOUNTER 2018-01-23 11:18 | Emergency (ER) | payer MEDICAID ==
[2018-01-23 11:23] VITALS: BP 115/67
[2018-01-23] MEDS ORDERED: LIDOCAINE 2% VISCOUS SOLN 20 ML UDCUP PO ONE (11:25)
[2018-01-23] MEDS ORDERED: BENZONATATE 100 MG CAPSULE PO ONE (11:50)
--- NOTE | 2018-01-23 11:54 | ER Document Report ---
HPI - HPI Pain Level: 5 Notes: Patient is a 28-year-old female who presents to the ED complaining of left upper dental pain #10/12 chronically. She has not noticed any obvious abscess or purulent discharge. Patient states that she is still able to eat and drink, but does have a decreased p.o. intake due to the pain. She has tried some over- the-counter meds with minimal relief. No other concerns or complaints. Patient states that she is scheduled for a dental appointment on Saturday. Denies any headache, fever, head injury, neck pain, hoarseness, drooling, URI, sore throat, chest pain, palpitations, syncope, cough, shortness of breath, wheeze, dyspnea, abdominal pain, nausea/vomiting/diarrhea, urinary retention, dysuria, hematuria, or rash. - ROS Systems Reviewed and Negative: Yes All other systems reviewed and negative - CONSTITUTIONAL Constitutional: DENIES: Fever, Chills - EENT EENT: DENIES: Sore Throat, Ear Pain, Eye problems - NEURO Neurology: DENIES: Headache, Weakness, Vision blurred, Dizzinesss / Vertigo - CARDIOVASCULAR Cardiovascular: DENIES: Chest pain - RESPIRATORY Respiratory: DENIES: Trouble Breathing, Coughing - GASTROINTESTINAL Gastrointestinal: DENIES: Abdominal Pain, Black / Bloody Stools - URINARY Urinary: DENIES: Dysuria, Urgency, Frequency - REPRODUCTIVE Reproductive: DENIES: : - MUSCULOSKELETAL Musculoskeletal: DENIES: Extremity pain Past Medical History - Social History Smoking Status: Unknown if Ever Smoked Chew tobacco use (# tins/day): No Frequency of alcohol use: None Drug Abuse: None Family History: Reviewed & Not Pertinent Patient has suicidal ideation: No Patient has homicidal ideation: No Renal/ Medical History: Denies: Hx Peritoneal Dialysis Past Surgical History: Reports: Hx Tonsillectomy - Immunizations Immunizations up to date: Yes Hx Diphtheria, Pertussis, Tetanus Vaccination: Yes Vertical Provider Document - CONSTITUTIONAL Agree With Documented VS: Yes Notes: PHYSICAL EXAMINATION: GENERAL: Well-appearing, well-nourished and in no acute distress. HEAD: Atraumatic, normocephalic. EYES: Pupils equal round and reactive to light, extraocular movements intact, sclera anicteric, conjunctiva are normal. ENT: EAC clear b/l. TM's intact b/l without erythema, fluid, or perforation. Nares patent and without discharge. oropharynx clear without exudates. No tonsilar hypertrophy or erythema. Moist mucous membranes. No sinus tenderness. Uvula midline. No palatine shift. No tongue protrusion. No respiratory compromise. Mouth: Poor dentition. + severe decay and mild gingivitis. No obvious abscess or discharge noted. No facial swelling. + tenderness to tooth #10/12 NECK: Normal range of motion, supple without lymphadenopathy. No rigidity/ meningismus. LUNGS: Breath sounds clear to auscultation bilaterally and equal. No wheezes rales or rhonchi. HEART: Regular rate and rhythm without murmurs, rubs, gallops. NEUROLOGICAL: Cranial nerves grossly intact. Normal speech, normal gait. PSYCH: Normal mood, normal affect. SKIN: Warm, Dry, normal turgor, no rashes or lesions noted. - INFECTION CONTROL TRAVEL OUTSIDE OF THE [place] IN LAST 30 DAYS: No Course - Re-evaluation Re-evalutation: 01/23/18 11:52 Patient is an afebrile, well-hydrated, 28-year-old female who presents to the ED with dental pain, suspect nerve root etiology versus infection. Vitals are acceptable. PE is otherwise unremarkable. No I&D, labs, or imaging warranted at this time based on H&P. Sandra reeder squeezed over teeth as she declined lidocaine (upsets her stomach). I will send her home with a prescription for penicillin. Low suspicion for any meningitis, sepsis, peritonsillar/pharyngeal abscess, respiratory compromise, Parker's, temporal arteritis, or other emergent systemic condition at this time. Patient is aware this condition can change from initial presentation and she needs to monitor symptoms closely. Conservative measures otherwise for symptoms. Keep appointment with dentist on Saturday. Recheck with your PCM this week as well. Return to the ED with any worsening/concerning symptoms otherwise as reviewed in discharge. Patient is in agreement. - Vital Signs Vital signs: Temp Pulse Resp BP Pulse Ox 98.7 F 97 12 115/67 98 01/23/18 11:22 01/23/18 11:22 01/23/18 11:22 01/23/18 11:22 01/23/18 11:22 Discharge - Discharge Clinical Impression: Pain, dental Condition: Stable Disposition: HOME, SELF-CARE Instructions: Penicillin V K ([facility]), Toothache ([facility]) Additional Instructions: Rayne and floss twice daily Maintain fluid intake Take antibiotics as directed Mouthwash, salt water gargles, peroxide rinse as needed Tylenol/ibuprofen as needed Recheck with PCM this week Keep appointment with dentist on Saturday as scheduled Return to the ED with any worsening symptoms and/or development of fever, headache, facial swelling, swelling of lips/tongue/throat, trouble swallowing, drooling, hoarseness, neck pain/stiffness, chest pain, palpitations, syncope, shortness of breath, trouble breathing, abdominal pain, n/v/d, numbness/tingling , or other worsening symptoms that are concerning to you. Prescriptions: Benzonatate [Tessalon Perle 100 mg Capsule] 100 mg PO Q8HP PRN #15 cap PRN Reason: Referrals: [facility] [Provider Group] - Follow up as needed
== END 2018-01-23 12:07 | disposition home or self-care (01) ==
LOC: ER 11:18
DX: K08.89 Other specified disorders of teeth and supporting structures (principal); R63.0 Anorexia
CPT/HCPCS: 99282

== ENCOUNTER 2018-01-29 21:08 | Emergency (ER) | payer SELFPAY ==
[2018-01-29 21:15] VITALS: BP 127/73
== END 2018-01-29 23:30 | disposition left against medical advice (07) ==
LOC: ER 21:08
DX: Z53.21 Procedure and treatment not carried out due to patient leaving prior to being seen by health care provider (principal); K08.89 Other specified disorders of teeth and supporting structures

== ENCOUNTER 2018-03-18 13:58 | Emergency (ER) | payer SELFPAY ==
--- NOTE | 2018-03-18 15:58 | ER Document Report ---
HPI - HPI Patient complains to provider of: broken tooth Time Seen by Provider: 03/18/18 15:30 Pain Level: 5 Context: 26-year-old female with a history of tooth pain presents to the emergency department for a tooth injury after jumping on a trampoline with her kids and hitting her mouth on 1 of the poles. She states she was jumping around with her kids and knocked her tooth out after striking the pole. States that the tooth completely came out and she stored in her dresser drawer. He tried to call the dentist but could not get an appointment until April 09. He endorses gum swelling and reduced appetite secondary to pain. She denies fevers , chills, hoarseness, airway swelling, shortness of breath, nausea, vomiting, diarrhea. Exacerbated by: Other Similar symptoms previously: Yes Recently seen / treated by doctor: No - CONSTITUTIONAL Constitutional: REPORTS: Fever - REPRODUCTIVE Reproductive: DENIES: : Past Medical History - General Information source: Patient - Social History Smoking Status: Never Smoker Chew tobacco use (# tins/day): No Frequency of alcohol use: None Drug Abuse: None Family History: Reviewed & Not Pertinent Patient has suicidal ideation: No Patient has homicidal ideation: No Renal/ Medical History: Denies: Hx Peritoneal Dialysis Past Surgical History: Reports: Hx Tonsillectomy - Immunizations Immunizations up to date: Yes Hx Diphtheria, Pertussis, Tetanus Vaccination: Yes Vertical Provider Document - CONSTITUTIONAL Agree With Documented VS: Yes Exam Limitations: No Limitations - INFECTION CONTROL TRAVEL OUTSIDE OF THE [place] IN LAST 30 DAYS: No - HEENT HEENT: Atraumatic, Normocephalic Mouth Diagram: 1 - Tooth avulsion at the level of the gums. Mild edema, no bleeding. - NECK Neck: Normal Inspection, Supple - RESPIRATORY Respiratory: Breath Sounds Normal, No Respiratory Distress - CARDIOVASCULAR Cardiovascular: Regular Rhythm, Tachycardia Course - Vital Signs Vital signs: Temp Pulse Resp BP Pulse Ox 98.6 F 101 H 16 123/78 100 03/18/18 14:07 03/18/18 14:07 03/18/18 14:07 03/18/18 14:07 03/18/18 14:07 Discharge - Discharge Clinical Impression: Avulsed tooth Qualifiers: Encounter type: initial encounter Qualified Code(s): S03.2XXA - Dislocation of tooth, initial encounter Condition: Stable Disposition: HOME, SELF-CARE Additional Instructions: You was seen in the emergency department this evening for a broken tooth. Although you already have a dental appointment for April 09 you should try to call every day to see if they have any openings due to cancellations. I have prescribed you a numbing gel that you can applied to the tooth every 2 hours with a cotton ball. Get the cotton ball wet and apply it to the tooth and hold it there for 3-5 minutes. This should give you some relief for 30 minutes to an hour, enough to let you eat. If you develop fevers, chills, redness in your gums, signs of infection like drainage, immediately return to the emergency department. You should be rechecked immediately if you develop major swelling of the face, increasing pain, a lump in the jaw or gums, headache , or fever.
[2018-03-18] MEDS ORDERED: LIDOCAINE 2% VISCOUS SOLN 20 ML UDCUP PO PRN (16:01)
[2018-03-18] MEDS ORDERED: OXYCODONE HCL IR 5 MG TABLET PO ONE (16:04)
[2018-03-18] MEDS ORDERED: HYDROCODONE/ACETAMINOPHEN 5-325 MG (6 TAB/ER DISP) PO PRN (16:04)
[2018-03-18 16:22] VITALS: BP 126/78
== END 2018-03-18 16:22 | disposition home or self-care (01) ==
LOC: ER 13:58
DX: S03.2XXA Dislocation of tooth, initial encounter (principal); W22.8XXA Striking against or struck by other objects, initial encounter; Y93.44 Activity, trampolining; R63.0 Anorexia
CPT/HCPCS: 99283; J3490

== ENCOUNTER 2018-04-02 11:40 | Emergency (ER) | payer SELFPAY ==
[2018-04-02 11:55] VITALS: BP 116/60
[2018-04-02] MEDS ORDERED: PENICILLIN V POTASSIUM 500 MG TABLET PO ONE (12:13)
[2018-04-02] MEDS ORDERED: ACETAMINOPHEN 325 MG TABLET PO ONE (12:13)
--- NOTE | 2018-04-02 12:18 | ER Document Report ---
HPI - HPI Patient complains to provider of: Dental injury Onset: This morning Onset/Duration: Sudden Quality of pain: Achy Pain Level: 2 Context: Patient states she was taking out the trash and stepped on her child shoestring causing her to fall hitting her face on the last step. Patient denies any loss of consciousness. Patient states that she did break off her left upper lateral incisor. Patient complains of dental pain left facial pain. Patient denies any nausea or vomiting. Patient denies any other injuries. Associated Symptoms: Other - Left-sided facial pain, dental pain. denies: Fever, Headache Exacerbated by: Denies Relieved by: Denies Similar symptoms previously: Yes Recently seen / treated by doctor: Yes - ROS ROS below otherwise negative: Yes Systems Reviewed and Negative: Yes All other systems reviewed and negative - CONSTITUTIONAL Constitutional: DENIES: Fever - NEURO Neurology: DENIES: Headache, Vision blurred, Dizzinesss / Vertigo - GASTROINTESTINAL Gastrointestinal: DENIES: Nausea, Patient vomiting - REPRODUCTIVE Reproductive: DENIES: : - MUSCULOSKELETAL Musculoskeletal: DENIES: Back Pain, Neck Pain - DERM Skin Color: Normal Skin Problems: None Past Medical History - General Information source: Patient - Social History Smoking Status: Never Smoker Frequency of alcohol use: None Drug Abuse: None Occupation: None Lives with: Family Family History: Reviewed & Not Pertinent - Medical History Medical History: Negative Renal/ Medical History: Denies: Hx Peritoneal Dialysis Past Surgical History: Reports: Hx Tonsillectomy - Immunizations Immunizations up to date: Yes Hx Diphtheria, Pertussis, Tetanus Vaccination: Yes Vertical Provider Document - CONSTITUTIONAL Agree With Documented VS: Yes Exam Limitations: No Limitations General Appearance: WD/WN, No Apparent Distress - INFECTION CONTROL TRAVEL OUTSIDE OF THE [place] IN LAST 30 DAYS: No - HEENT HEENT: Atraumatic, Normal ENT Exam, Normocephalic, PERRLA Mouth Diagram: 1 - dental fracture at gum line, no gingival bleeding, no swelling, no gingival abscess, no submental or sublingual swelling - NECK Neck: Normal Inspection, Supple - RESPIRATORY Respiratory: Breath Sounds Normal, No Respiratory Distress - CARDIOVASCULAR Cardiovascular: Regular Rate, Regular Rhythm, No Murmur - BACK Back: Normal Inspection Notes: No spinal midline tenderness step-off or deformity - MUSCULOSKELETAL/EXTREMETIES Musculoskeletal/Extremeties: CLIFFORD GARCIA - NEURO Level of Consciousness: Awake, Alert, Appropriate Motor/Sensory: No Motor Deficit - DERM Integumentary: Warm, Dry, No Rash Course - Re-evaluation Re-evalutation: 04/02/18 12:18 Review of patient's previous ER visits demonstrates that patient has been here multiple times for dental pain to this same tooth in the past. Patient was here on 03/18/2018 after reporting that she had jumped on a trampoline and hit a pole and broke her tooth. Patient states today that she fell and hit her face on the steps breaking the tooth. Review of providers note from her ER visit on 03/18/2018 reported that patient had broke the tooth off at the level of the gingiva which is the same presentation today. Discussed with patient the concern that she has returned twice now reporting acute fractures of the same tooth. Will start patient on antibiotics and encourage outpatient follow-up with dental care provider. Patient encouraged to manage her pain symptoms with [id number] nonnarcotic medications at this time. 04/02/18 16:41 - Vital Signs Vital signs: Temp Pulse Resp BP Pulse Ox 98.0 F 99 16 116/60 98 04/02/18 11:53 04/02/18 11:53 04/02/18 11:53 04/02/18 11:53 04/02/18 11:53 - Diagnostic Test Radiology reviewed: Reports reviewed Discharge - Discharge Clinical Impression: Toothache, Facial pain Fall Qualifiers: Encounter type: initial encounter Qualified Code(s): W19.XXXA - Unspecified fall, initial encounter Condition: Stable Disposition: HOME, SELF-CARE Instructions: Acetaminophen, Anti-Inflammatory Medication ([facility]), Penicillin V K ([facility]), Toothache ([facility]) Additional Instructions: Return immediately for any new or worsening symptoms Followup with your primary care provider, call tomorrow to make a followup appointment Follow-up with a dental care provider for recheck Prescriptions: Penicillin V Potassium [Penicillin Vk 500 mg Tablet] 500 mg PO BID #20 tablet Referrals: [facility] [Provider Group] - Follow up as needed
[2018-04-02] MEDS ORDERED: HYDROCODONE/ACETAMINOPHEN 5-325 MG TABLET PO ONE (12:21)
--- NOTE | 2018-04-02 12:59 | RADIOLOGY REPORT (SQ) ---
EXAM DESCRIPTION: CT FACIAL AREA WITHOUT COMPLETED DATE/TIME: 04/02/2018 12:28 pm REASON FOR STUDY: fall, dental fx, L facial pain COMPARISON: None. TECHNIQUE: Noncontrasted images through the facial bones and orbits windowed for bone and soft tissu e. Additional coronal and sagittal reconstructed images reviewed. All images stored on PACS. All CT scanners at this facility use dose modulation, iterative reconstruction, and/or weight based d osing when appropriate to reduce radiation dose to as low as reasonably achievable (ALARA). [facility]: Dose Right [facility]: CareDose [facility]: Dose Right [facility]: Teradose 4D [facility]: [facility] RADIATION DOSE: CT Rad equipment meets quality standard of care and radiation dose reduction techniq ues were employed. CTDIvol: 30.4 mGy. DLP: 564 mGy-cm. mGy. LIMITATIONS: None. FINDINGS: FACIAL BONES: No fracture or bone lesion. ORBITS: Intact. No fracture. Symmetric intact globes and retroorbital soft tissues. PARANASAL SINUSES: Clear. No significant mucosal thickening, mass or fluid. No nasal polyps. Maxill dre sinus outlets are patent. SOFT TISSUES: No mass or edema. INFERIOR BRAIN: Limited view. No acute findings. OTHER: Dental caries with progressive tooth loss involving the upper left lateral incisor and 1st bic uspid. IMPRESSION: No evidence of acute bony abnormality. Dental caries with progressive tooth loss involving the upper left lateral incisor and 1st bicuspid. TECHNICAL DOCUMENTATION: JOB ID: [id number] Quality ID # [id number]: Final reports with documentation of one or more dose reduction techniques (e.g., Au tomated exposure control, adjustment of the mA and/or kV according to patient size, use of iterative reconstruction technique) 2010 [email or web address]- All Rights Reserved Reading location - IP/workstation name: [email or web address]
== END 2018-04-02 13:21 | disposition home or self-care (01) ==
LOC: ER 11:40
DX: K08.89 Other specified disorders of teeth and supporting structures (principal); R51 Headache; W10.9XXA Fall (on) (from) unspecified stairs and steps, initial encounter; Y93.89 Activity, other specified
CPT/HCPCS: 70486; 99283

== ENCOUNTER 2018-05-10 15:54 | Emergency (ER) | payer SELFPAY ==
[2018-05-10] MEDS ORDERED: HYDROCODONE/ACETAMINOPHEN 5-325 MG TABLET PO ONE (17:02)
--- NOTE | 2018-05-10 17:04 | ER Document Report ---
HPI - HPI Patient complains to provider of: foot pain Time Seen by Provider: 05/10/18 16:49 Onset: Last week Onset/Duration: Persistent Quality of pain: Achy Pain Level: 5 Context: Patient presents complaining of left foot pain. Patient states that she was walking and developed a blister and she popped this blister. Patient states she now feels like she has a hard area to the bottom of her foot. Patient denies any fever. Patient states she has been changing how she walks to avoid stepping on her heel. Patient states this is caused her lower leg to become painful as well although she denies any injury to the lower leg. Associated Symptoms: Other - Left foot pain Exacerbated by: Standing, Movement, Walking Relieved by: Denies Similar symptoms previously: Yes Recently seen / treated by doctor: Yes - ROS ROS below otherwise negative: Yes Systems Reviewed and Negative: Yes All other systems reviewed and negative - CONSTITUTIONAL Constitutional: DENIES: Fever, Chills - NEURO Neurology: DENIES: Weakness - REPRODUCTIVE Reproductive: DENIES: : - MUSCULOSKELETAL Musculoskeletal: REPORTS: Extremity pain - DERM Skin Color: Normal Skin Problems: Blister Past Medical History - General Information source: Patient - Social History Smoking Status: Never Smoker Frequency of alcohol use: None Drug Abuse: None Lives with: Spouse/Significant other Family History: Reviewed & Not Pertinent - Medical History Medical History: Negative Renal/ Medical History: Denies: Hx Peritoneal Dialysis Past Surgical History: Reports: Hx Tonsillectomy - Immunizations Immunizations up to date: Yes Hx Diphtheria, Pertussis, Tetanus Vaccination: Yes Vertical Provider Document - CONSTITUTIONAL Agree With Documented VS: Yes Exam Limitations: No Limitations General Appearance: WD/WN, No Apparent Distress - INFECTION CONTROL TRAVEL OUTSIDE OF THE [place] IN LAST 30 DAYS: No - HEENT HEENT: Atraumatic, Normocephalic - NECK Neck: Normal Inspection - RESPIRATORY Respiratory: Breath Sounds Normal, No Respiratory Distress - CARDIOVASCULAR Cardiovascular: Regular Rate, Regular Rhythm Pulses: Normal: Dorsalis pedis - BACK Back: Normal Inspection - MUSCULOSKELETAL/EXTREMETIES Musculoskeletal/Extremeties: MAEW, FROM, Tender - Tenderness to plantar surface of left foot - NEURO Level of Consciousness: Awake, Alert, Appropriate Motor/Sensory: No Motor Deficit - DERM Integumentary: Warm, Dry, Rash - Plantar wart bottom of left foot over the calcaneus Course - Re-evaluation Re-evalutation: 05/10/18 17:44 RN reports that patient received her pain medication here and then signed her discharge paperwork but refused to take her papers with her or to take the crutches. - Vital Signs Vital signs: Temp Pulse Resp BP Pulse Ox 98.3 F 101 H 13 121/72 100 05/10/18 16:09 05/10/18 16:09 05/10/18 16:09 05/10/18 16:09 05/10/18 16:09 Discharge - Discharge Clinical Impression: Plantar wart of left foot Condition: Stable Disposition: HOME, SELF-CARE Instructions: Plantar Warts (OM) Additional Instructions: Return immediately for any new or worsening symptoms Followup with your primary care provider, call tomorrow to make a followup appointment Use a foam cushion to place around the wart to make it more comfortable to bear weight. You may use [id number] topical treatments for plantar warts Follow-up with the maintenance technician as planned Referrals: LAZARA PABLO DPM [ACTIVE STAFF] - Follow up as needed MARY TOLBERT DPM [ACTIVE STAFF] - Follow up as needed
[2018-05-10 17:50] VITALS: BP 123/72
== END 2018-05-10 17:50 | disposition home or self-care (01) ==
LOC: ER 15:54
DX: B07.0 Plantar wart (principal); T14.8XXA Other injury of unspecified body region, initial encounter; X58.XXXA Exposure to other specified factors, initial encounter
CPT/HCPCS: 99283

== ENCOUNTER 2018-11-05 22:43 | Emergency (ER) | payer SELFPAY ==
[2018-11-05] MEDS ORDERED: NORMAL SALINE 1000 ML 1,000 ML IV ONE (23:12)
--- NOTE | 2018-11-05 23:13 | ER Document Report ---
ED General - General Stated Complaint: ABDOMINAL PAIN Time Seen by Provider: 11/05/18 22:57 TRAVEL OUTSIDE OF THE [place] IN LAST 30 DAYS: No - HPI Notes: Patient is a 28-year-old female G5, P4 that presents to the emergency department for chief complaint of abdominal pain, vomiting and drug withdrawal. Patient was arrested earlier today. She states that she had started vomiting while in custodial and complaining of abdominal pain. Because of her current they brought her to the emergency room for medical clearance to be in custodial. Patient states that she last used heroin crushed with Tylenol yesterday. Patient also occasionally uses methamphetamine and benzodiazepines. She does not use benzos daily. Patient also states she occasionally abuses Benadryl when she cannot get other drugs. she denies alcohol use. She is reporting a crampy pain on the left side of her lower abdomen and states that she feels like that is where her baby is located. Patient has not had any care for this current including ultrasound. She believes her LMP was 05/29/2018 which would make her 22 weeks and 6 days. Patient denies any vaginal discharge or bleeding. She denies diarrhea and constipation. Past Medical History: Negative Past Surgical History: Negative Social History: Opiate abuse, methamphetamine abuse, benzodiazepine abuse, tobacco abuse. Denies alcohol use Family History: Reviewed and noncontributory for presenting illness Allergies: Reviewed, see documented allergy list. REVIEW OF SYSTEMS: CONSTITUTIONAL : No fever chills No diaphoresis No recent illness EENT: No vision changes No congestion No sore throat CARDIOVASCULAR: No chest pain No palpitations RESPIRATORY: No shortness of breath No cough No difficulty breathing GASTROINTESTINAL: abdominal pain nausea vomiting No diarrhea GENITOURINARY: No dysuria No hematuria No difficulty urinating MUSCULOSKELETAL: No back pain No leg pain No arm pain SKIN: No rashes No lesions LYMPHATIC: No swollen, enlarged glands. NEUROLOGICAL: No lightheadedness No headache No weakness No paresthesias PSYCHIATRIC: No anxiety No depression PHYSICAL EXAMINATION: Vital signs reviewed, nursing noted reviewed. GENERAL: Well-appearing, well-nourished and in no acute distress. HEAD: Atraumatic, normocephalic. EYES: Eyes appear normal, extraocular movements intact, sclera anicteric, conj unctiva are normal. ENT: nares patent, oropharynx clear without exudates. Moist mucous membranes. NECK: Normal range of motion, supple without lymphadenopathy LUNGS: Breath sounds clear to auscultation bilaterally and equal. No wheezes rales or rhonchi. HEART: Regular rate and rhythm without murmurs ABDOMEN: Gravid uterus palpated at the level of the umbilicus, uterus soft and nontender. Abdomen soft, nontender, normoactive bowel sounds. No rebound, guarding, or rigidity. No masses appreciated. EXTREMITIES: Nontender, good range of motion, no pitting or edema. NEUROLOGICAL: No focal neurological deficits. Moves all extremities spontaneously Motor and sensory grossly intact on exam. PSYCH: Anxious mood, normal affect. SKIN: Warm, Dry, normal turgor, no rashes or lesions noted on exposed skin - Related Data Allergies/Adverse Reactions: codeine [Codeine] Allergy (Verified 04/02/18 11:44) Hives naproxen Allergy (Verified 04/02/18 11:44) tramadol [Tramadol] Allergy (Verified 04/02/18 11:44) Hives lidocaine Adverse Reaction (Verified 04/02/18 11:44) VOMITING Past Medical History - Social History Smoking Status: Current Every Day Smoker Family History: Reviewed & Not Pertinent Renal/ Medical History: Denies: Hx Peritoneal Dialysis Past Surgical History: Reports: Hx Tonsillectomy - Immunizations Immunizations up to date: Yes Hx Diphtheria, Pertussis, Tetanus Vaccination: Yes Course - Re-evaluation Re-evalutation: 11/05/18 23:14 Vitals reviewed. Nursing notes reviewed. Patient placed on telemetry monitoring. She is not tachycardic or in severe withdrawals. She does not use benzodiazepines daily and states she has not used that in about 2 weeks. Patient also denies alcohol use. She has not had any care and is complaining of cramping in her left lower abdomen. heart tones and ultrasound have been ordered. Patient has been crushing Tylenol with her heroin to snorted therefore Tylenol levels will also be obtained. 11/06/18 01:21 Patient has remained stable while in the emergency room. She is not tachycardic or having any delirium. Patient's ultrasound shows single live intrauterine gestation around 15 weeks. She is Rh+ without any active bleeding. Gonorrhea and Chlamydia test has been ordered but not resulted. I did offer prophylactic treatment which she has declined. Patient urine sample does have surface contamination. She is not currently having any symptoms of acute UTI and urine culture has been ordered. At this point I am not highly suspicious of urinary tract infection therefore antibiotics will hold until culture results. Patient is medically cleared. She is stable and discharged back into police custody. Laboratory 11/05/18 11/05/18 11/05/18 23:00 23:00 23:20 WBC 9.2 RBC 4.38 Hgb 13.5 Hct 39.9 MCV 91 MCH 30.8 MCHC 33.8 RDW 13.7 Plt Count 307 Seg Neutrophils % 69.8 Lymphocytes % 21.6 Monocytes % 7.5 Eosinophils % 0.7 Basophils % 0.4 Absolute Neutrophils 6.4 Absolute Lymphocytes 2.0 Absolute Monocytes 0.7 Absolute Eosinophils 0.1 Absolute Basophils 0.0 Sodium 136.1 L Potassium 4.0 Chloride 104 Carbon Dioxide 25 Anion Gap 7 BUN 7 Creatinine 0.55 Est GFR ( Amer) > 60 Est GFR (Non-Af Amer) > 60 Glucose 83 Calcium 9.6 Total Bilirubin 0.2 Direct Bilirubin 0.2 Neonat Total Bilirubin Not Reportable Neonat Direct Bilirubin Not Reportable Neonat Indirect Bili Not Reportable AST 15 ALT 25 Alkaline Phosphatase 46 Total Protein 6.6 Albumin 3.7 Urine Color Urine Appearance Urine pH Ur Specific Scobey Urine Protein Urine Glucose (UA) Urine Ketones Urine Blood Urine Nitrite Urine Bilirubin Urine Urobilinogen Ur Leukocyte Esterase Urine WBC (Auto) Urine RBC (Auto) Urine Bacteria (Auto) Squamous Epi Cells Auto Urine Mucus (Auto) Urine Ascorbic Acid Salicylates < 1.0 L Acetaminophen < 10 L Serum Alcohol < 10 Blood Type O POSITIVE Rhogam Indicated RHOGAM NOT INDICATED 11/06/18 00:45 WBC RBC Hgb Hct MCV MCH MCHC RDW Plt Count Seg Neutrophils % Lymphocytes % Monocytes % Eosinophils % Basophils % Absolute Neutrophils Absolute Lymphocytes Absolute Monocytes Absolute Eosinophils Absolute Basophils Sodium Potassium Chloride Carbon Dioxide Anion Gap BUN Creatinine Est GFR ( Amer) Est GFR (Non-Af Amer) Glucose Calcium Total Bilirubin Direct Bilirubin Neonat Total Bilirubin Neonat Direct Bilirubin Neonat Indirect Bili AST ALT Alkaline Phosphatase Total Protein Albumin Urine Color YELLOW Urine Appearance CLOUDY Urine pH 7.0 Ur Specific Scobey 1.006 Urine Protein NEGATIVE Urine Glucose (UA) 50 H Urine Ketones NEGATIVE Urine Blood NEGATIVE Urine Nitrite NEGATIVE Urine Bilirubin NEGATIVE Urine Urobilinogen NEGATIVE Ur Leukocyte Esterase SMALL H Urine WBC (Auto) 8 Urine RBC (Auto) 2 Urine Bacteria (Auto) TRACE Squamous Epi Cells Auto 16 Urine Mucus (Auto) OCC Urine Ascorbic Acid NEGATIVE Salicylates Acetaminophen Serum Alcohol Blood Type Rhogam Indicated Obstetrics Ultrasound 11/05/18 23:06 IMPRESSION: Single live intrauterine gestation as described. 11/06/18 01:22 - Laboratory Result Diagrams: 11/05/18 23:00 11/05/18 23:00 Laboratory results interpreted by me: 11/05/18 11/06/18 23:00 00:45 Sodium 136.1 L Urine Glucose (UA) 50 H Ur Leukocyte Esterase SMALL H Salicylates < 1.0 L Acetaminophen < 10 L Discharge - Discharge Clinical Impression: Polysubstance abuse, Abdominal pain affecting Condition: Stable Disposition: HOME, SELF-CARE Additional Instructions: Please return to the emergency department if you have any worsening, or concern of your symptoms. Please return to the emergency department if you develop chest pain, difficulty breathing, severe abdominal pain, or ongoing vomiting. Please follow-up with your primary care physician in 2-3 days and any other recommended physicians. If prescribed, take all medications as directed. If you have any questions or concerns do not hesitate to return the emergency department for evaluation. Discontinue all illicit drug use The only medication safe to take for pain in is Tylenol, you can take this as directed on the label as needed for pain. Referrals: [facility] [Provider Group] - Follow up as needed [facility] [Provider Group] - Follow up as needed [facility] [Provider Group] - Follow up as needed
[2018-11-05 23:15] LABS: ABSOLUTE EOSINOPHILS # (AUTO) 0.1 10^3/uL (0.0-0.6); ABSOLUTE MONOCYTES (AUTO) 0.7 10^3/uL (0.1-1.4); ABSOLUTE NEUT (AUTO) 6.4 10^3/uL (1.7-8.2); BASOPHILS % (AUTO) 0.4 % (0-2); EOSINOPHILS % (AUTO) 0.7 % (0-6); HEMATOCRIT 39.9 % (36.0-47.0); HEMOGLOBIN 13.5 g/dL (12.0-15.5); LYMPHOCYTES % (AUTO) 21.6 % (13-45); MEAN CORPUSCULAR HEMOGLOBIN 30.8 pg (27.0-33.4); MEAN CORPUSCULAR HGB CONC 33.8 g/dL (32.0-36.0); MEAN CORPUSCULAR VOLUME 91 fl (80-97); MONOCYTES % (AUTO) 7.5 % (3-13); PLATELET COUNT 307 10^3/uL (150-450); RED BLOOD COUNT 4.38 10^6/uL (3.72-5.28); RED CELL DISTRIBUTION WIDTH 13.7 % (11.5-14.0); SEGMENTED NEUTROPHILS % (AUTO) 69.8 % (42-78); TOTAL CELLS COUNTED % (AUTO) 100 %; WHITE BLOOD COUNT 9.2 10^3/uL (4.0-10.5)
[2018-11-05 23:29] LABS: ACETAMINOPHEN < 10 ug/mL (10-30); ALANINE AMINOTRANSFERASE 25 U/L (9-52); ALBUMIN 3.7 g/dL (3.5-5.0); ALCOHOL < 10 mg/dL (NONE DETECTED); ALKALINE PHOSPHATASE 46 U/L (38-126); ANION GAP 7 (5-19); ASPARTATE AMINO TRANSFERASE 15 U/L (14-36); BILIRUBIN,DIRECT 0.2 mg/dL (0.0-0.4); BILIRUBIN,TOTAL 0.2 mg/dL (0.2-1.3); BLOOD UREA NITROGEN 7 mg/dL (7-20); CALCIUM 9.6 mg/dL (8.4-10.2); CARBON DIOXIDE 25 mmol/L (22-30); CHLORIDE 104 mmol/L (98-107); GLUCOSE 83 mg/dL (75-110); SALICYLATE < 1.0 mg/dL (2.0-20.0); TOTAL PROTEIN 6.6 g/dL (6.3-8.2)
--- NOTE | 2018-11-06 00:16 | RADIOLOGY REPORT (SQ) ---
CLINICAL HISTORY: abdominal pain COMPARISON: None. TECHNIQUE: US LIMITED on 11/05/2018 11:06 PM CDT FINDINGS: Cervix is closed measuring 3.1 cm. There is a single live intrauterine gestation with a heart rate of 150 bpm. Biparietal diameter measures 2.7 cm corresponding to 14 weeks six days. Head circumference measures 10.2 cm corresponding to 14 weeks five days. Abdominal circumference measures 8.7 cm corresponding to 15 weeks zero days. Femur length measures 1.6 cm corresponding to 14 weeks four days. Estimated weight is 107 g. HERMANN is normal at 5.6. IMPRESSION: Single live intrauterine gestation as described.
[2018-11-06 01:03] LABS: APPEARANCE,URINE CLOUDY; BILIRUBIN,URINE NEGATIVE (NEGATIVE); COLOR,URINE YELLOW; GLUCOSE, URINE 50 mg/dL (NEGATIVE); KETONES,URINE NEGATIVE (NEGATIVE); LEUKOCYTE ESTERASE,URINE SMALL (NEGATIVE); NITRITE,URINE NEGATIVE (NEGATIVE); PROTEIN,URINE NEGATIVE (NEGATIVE); URINE SPECIFIC GRAVITY 1.006; UROBILINOGEN,URINE NEGATIVE mg/dL (<2.0)
[2018-11-06 01:32] VITALS: BP 136/51
[2018-11-06 01:38] LABS: URINE AMPHETAMINES SCREEN UNCONFIRMED POSITIVE; URINE BARBITURATES SCREEN NEGATIVE; URINE BENZODIAZEPINES SCREEN NEGATIVE; URINE COCAINE SCREEN NEGATIVE; URINE MARIJUANA (THC) SCREEN NEGATIVE; URINE METHADONE SCREEN NEGATIVE; URINE PHENCYCLIDINE SCREEN NEGATIVE
[2018-11-06 02:46] LABS: CHLAM PCR NOT DETECTED (NOT DETECT)
== END 2018-11-06 01:37 | disposition home or self-care (01) ==
LOC: ER 22:43
DX: O26.899 Other specified pregnancy related conditions, unspecified trimester (principal); R10.30 Lower abdominal pain, unspecified; R68.83 Chills (without fever); O21.9 Vomiting of pregnancy, unspecified; O99.320 Drug use complicating pregnancy, unspecified trimester; F11.10 Opioid abuse, uncomplicated; F15.10 Other stimulant abuse, uncomplicated; F13.10 Sedative, hypnotic or anxiolytic abuse, uncomplicated; O99.330 Smoking (tobacco) complicating pregnancy, unspecified trimester; F17.200 Nicotine dependence, unspecified, uncomplicated; Z3A.00 Weeks of gestation of pregnancy not specified; Z88.5 Allergy status to narcotic agent; Z88.8 Allergy status to other drugs, medicaments and biological substances
CPT/HCPCS: 99284; 96360; 96361; 86900; 86901; 36415; 80307 ×4; 85025; 80053; 81001; 87491; 87591; 76815; J7030

== ENCOUNTER 2019-01-07 12:36 | Outpatient (CLI) | payer OTHER ==
[2019-01-07] MEDS ORDERED: RINGERS SOLUTION,LACTATED 1,000 ML IV PRN (13:51)
[2019-01-07] MEDS ORDERED: ONDANSETRON HCL INJ/PF 4 MG/2 ML SDV IV ONE (13:51)
[2019-01-07] MEDS ORDERED: ONDANSETRON HCL INJ/PF 4 MG/2 ML SDV ONE (13:58)
[2019-01-07 14:13] LABS: APPEARANCE,URINE SLIGHTLY-CLOUDY; BILIRUBIN,URINE NEGATIVE (NEGATIVE); COLOR,URINE YELLOW; GLUCOSE, URINE NEGATIVE (NEGATIVE); KETONES,URINE NEGATIVE (NEGATIVE); LEUKOCYTE ESTERASE,URINE MODERATE (NEGATIVE); NITRITE,URINE NEGATIVE (NEGATIVE); PROTEIN,URINE NEGATIVE (NEGATIVE); URINE SPECIFIC GRAVITY 1.013; UROBILINOGEN,URINE NEGATIVE mg/dL (<2.0)
[2019-01-07 14:28] LABS: URINE AMPHETAMINES SCREEN NEGATIVE; URINE BARBITURATES SCREEN NEGATIVE; URINE BENZODIAZEPINES SCREEN NEGATIVE; URINE COCAINE SCREEN NEGATIVE; URINE MARIJUANA (THC) SCREEN NEGATIVE; URINE PHENCYCLIDINE SCREEN NEGATIVE
[2019-01-07 14:34] LABS: URINE METHADONE SCREEN UNCONFIRMED POSITIVE
[2019-01-07] MEDS ORDERED: LORAZEPAM 0.5 MG TABLET PO ONE (16:30)
--- NOTE | 2019-01-07 16:47 | RADIOLOGY REPORT (SQ) ---
EXAM DESCRIPTION: U/S OB 14+ TRNABD 1GES W/O DOP COMPLETED DATE/TIME: 01/07/2019 4:20 pm REASON FOR STUDY: abdominal pain, limited care COMPARISON: None. TECHNIQUE: Static and Dynamic grayscale imaging performed of gravid uterus using transabdominal appr oac. Additional selected color Doppler and spectral images recorded. All stored on PACS. LIMITATIONS: None. FINDINGS: FETUSES SEEN:1 EGA: 23 week 2 day. Calculated using BPD,FL,HC,AC documented on images. No discrepancy with clinical dates. CONSUELO: 05/04/2019. EFW: 580 grams PERCENTILE: 37%. HERMANN: 16.5 cm. PLACENTA: Posterior. GRADE: I PRESENTATION: Cephalic. ANATOMY: HEART RATE: 143 beats per minute. FOUR CHAMBER HEART: Visualized. THREE VESSEL CORD: Yes. CORD INSERTION: Visualized. KIDNEYS AND BLADDER: Visualized. Appear normal. STOMACH: Visualized. Appears normal. SPINE: Normal as visualized. BRAIN AND LATERAL VENTRICLES: Visualized. Appear normal. OTHER: No other significant finding. MATERNAL ADNEXA: Maternal ovaries not visualized. CERVICAL LENGTH: 3.2 cm. Closed. OTHER: No other significant finding. IMPRESSION: LIVING INTRAUTERINE . ESTIMATED GESTATIONAL AGE 23 WEEK 2 DAY. NO VISUALIZED ANOMALIES. Trimester of : Second trimester - 13 weeks 1 day to 27 weeks 6 days. TECHNICAL DOCUMENTATION: JOB ID: [id number] [employer]- All Rights Reserved Reading location - IP/workstation name: [email or web address]
[2019-01-07] MEDS ORDERED: METHADONE HCL 1 MG/ML 30 ML BOTTLE PO ONE (18:04)
[2019-01-07] MEDS ORDERED: METHADONE HCL 10 MG TABLET ONE (18:29)
[2019-01-07] MEDS ORDERED: METHADONE HCL 10 MG TABLET PO ONE (19:00)
== END 2019-01-07 19:17 | disposition home or self-care (01) ==
LOC: LC 12:36
PROVIDERS: ATTEND Obstetrics & Gynecology
PROC: 4A1HXCZ Monitoring of Products of Conception, Cardiac Rate, External Approach (ICD-10-PCS; principal; 2019-01-07)
DX: O26.892 Other specified pregnancy related conditions, second trimester (principal); R10.9 Unspecified abdominal pain; O99.332 Smoking (tobacco) complicating pregnancy, second trimester; F17.210 Nicotine dependence, cigarettes, uncomplicated; O09.32 Supervision of pregnancy with insufficient antenatal care, second trimester; Z3A.23 23 weeks gestation of pregnancy
CPT/HCPCS: 59899; 36415; 81001; 80307; 76805; J2405

== ENCOUNTER 2019-12-25 14:22 | Emergency (ER) | payer SELFPAY ==
[2019-12-25 14:34] VITALS: BP 122/78
== END 2019-12-25 15:13 | disposition left against medical advice (07) ==
LOC: ER 14:22
DX: Z53.21 Procedure and treatment not carried out due to patient leaving prior to being seen by health care provider (principal)

== ENCOUNTER 2020-04-28 14:23 | Emergency (ER) | payer SELFPAY ==
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
[2020-04-28 16:14] VITALS: BP 121/72
== END 2020-04-28 16:00 | disposition home or self-care (01) ==
LOC: ER 14:23
DX: S00.511A Abrasion of lip, initial encounter (principal); S80.212A Abrasion, left knee, initial encounter; R22.0 Localized swelling, mass and lump, head; Y04.2XXA Assault by strike against or bumped into by another person, initial encounter; S50.812A Abrasion of left forearm, initial encounter; S50.811A Abrasion of right forearm, initial encounter; Y08.89XA Assault by other specified means, initial encounter; S21.252A Open bite of left back wall of thorax without penetration into thoracic cavity, initial encounter; Y04.1XXA Assault by human bite, initial encounter; F17.200 Nicotine dependence, unspecified, uncomplicated; Z88.6 Allergy status to analgesic agent; Z88.5 Allergy status to narcotic agent; Z88.8 Allergy status to other drugs, medicaments and biological substances
CPT/HCPCS: 99283